=== PATIENT | male | born 1960 | race African-American/Black ===

== ENCOUNTER 2018-11-27 10:19 | Inpatient (IN) | payer OTHER ==
[2018-11-27 10:44] VITALS: BMI 22.4
--- NOTE | 2018-11-27 10:48 | PDOC ---
Attending Attestation - HPI HPI: The patient is a 58 year old male, with a significant past medical history of HTN, DM, ESRD on dialysis (Mon., Wed., Fri.), who presents to the emergency department with 3 days of nausea & vomiting (coffee ground emesis). Patient states that hes been having nausea and vomit for 3 days, approx. 12 episodes/ day, 2 episodes today. Patient states that he vomits every time he eats and notes associated weakness and epigastric pain. Patient states last BM was yesterday, normal formed, non-bloody. Today he reports passing gas. He states he has never seen GI but had a normal colonoscopy 2 years ago. He states that this has never happened to him before. He also notes subjective fever and chills. Patient states he was last dialyzed yesterday due to the holidays. He denies any recent chest pain or shortness of breath. He denies any recent headache or dizziness. He denies any recent diarrhea or constipation. He denies any recent dysuria, frequency, urgency or hematuria. Primary Care Physician: Nathan Boyd 11/27/18 11:28 - Physicial Exam PE: Vitals: Triage Vital signs reviewed General Appearance: mild discomfort, well nourished well developed Head: Atraumatic Chest Wall: Nontender Cardiac: Regular rate and rhythm, no murmurs, no rubs, no gallops Lungs: Clear to auscultation bilateral, good air movement bilaterally Abdomen: Soft, non distended, normal bowel sounds, mild epigastric discomfort. Extremities: Full range of motion to all extremities, no cyanosis, clubbing, or edema Skin: Warm and dry, no rashes or lesions, no rash, no petechiae Neuro: AOX3; Cranial Nerves 2-12 grossly intact, Strength intact to all extremities, Sensation intact to all extremities, gait normal Psych: Normal mood, normal affect <Brinda Ly - Last Filed: 11/27/18 13:17> - Resident Resident Name: Jeannette Glass - ED Attending Attestation I have performed the following: I have examined & evaluated the patient, The case was reviewed & discussed with the resident, I agree w/resident's findings & plan, Exceptions are as noted - Medical Decision Making 11/27/18 15:53 The patient is a 58 year old male, with a significant past medical history of HTN, DM, ESRD on dialysis (Mon., Wed., Fri.), who presents to the emergency department with 3 days of nausea & vomiting (coffee ground emesis). Patient states that hes been having nausea and vomit for 3 days, approx. 12 episodes/ day, 2 episodes today. Profuse vomiting coffee ground Epigastric discomfort given white count of [address] with IV contrast. We'll admit for IV hydration with fluid status monitoring patient will require dialysis tomorrow Dr. Ford to follow up CT and dispo <Gary Hoyt - Last Filed: 11/27/18 15:54> Heart Score/ECG Review - ECG Impressions Comment:: 11/27/18 15:54 EKG performed at 1059 demonstrates normal sinus rhythm no ST elevations no T- wave inversions. Interpreted by me. <Gary Hoyt - Last Filed: 11/27/18 15:54>
[2018-11-27] MEDS ORDERED: ONDANSETRON 4 MG/2 ML VIAL IVPUSH ONE (10:55)
[2018-11-27] MEDS ORDERED: ONDANSETRON 4 MG/2 ML VIAL ONE (11:13)
[2018-11-27 11:17] LABS: BASO % 0.5 % (0-2.0); HEMATOCRIT 35.6 % (35.4-49); HEMOGLOBIN 11.2 GM/dL (11.7-16.9); LYMPH % 4.6 % (8-40); MCHC 31.5 g/dl (32.0-35.9); MONO % 6.8 % (3.8-10.2); NEUT % 88.1 % (42.8-82.8); PLATELET COUNT 238 K/MM3 (134-434); RBC 3.87 M/mm3 (4.00-5.60); RDW 16.9 % (11.9-15.9)
[2018-11-27 11:40] LABS: INR 1.03 (0.83-1.09); PROTHROMBIN TIME (PATIENT) 12.2 SEC (9.7-13.0)
[2018-11-27 11:42] LABS: ACTIVATED PTT 29.7 SECONDS (25.2-36.5)
[2018-11-27 12:00] LABS: ALBUMIN 3.6 g/dl (3.4-5.0); ALK PHOS 108 U/L (45-117); ANION GAP 11 MMOL/L (8-16); BILIRUBIN,TOTAL 0.5 mg/dL (0.2-1); BLOOD UREA NITROGEN 44 mg/dL (7-18); CALCIUM 8.3 mg/dL (8.5-10.1); CHLORIDE 90 mmol/L (98-107); CO2 27 mmol/L (21-32); GLUCOSE,RANDOM 205 mg/dL (74-106); LIPASE 473 U/L (73-393); POTASSIUM 5.3 mmol/L (3.5-5.1); SGOT/AST 18 U/L (15-37); SGPT/ALT 20 U/L (13-61); SODIUM 128 mmol/L (136-145); TOT PROT 7.8 g/dl (6.4-8.2)
[2018-11-27] MEDS ORDERED: ACETAMINOPHEN 1000 MG/100 ML VIAL (NON FORMULARY) IVPB ONE (12:43)
[2018-11-27] MEDS ORDERED: SODIUM CHLORIDE 1,000 ML IV SCH ×2 (12:45→23:45)
--- NOTE | 2018-11-27 12:46 | PDOC ---
History of Present Illness - General Chief Complaint: Coffee Ground Emesis Stated Complaint: NAUSEA/VOMITING Time Seen by Provider: 11/27/18 10:38 - History of Present Illness Initial Comments: 58yo M with PMH of HTN, DM, ESRD on dialysis MWF presenting with vomiting x 3 days. Patient reports vomiting that has been black. He last had dialysis yesterday and was supposed to have dialysis today but did not go because he came into the ED. Last bowel movement was yesterday and was a normal formed brown stool without blood. Last colonoscopy was two years ago and was normal. Denies history of abdominal surgeries. Endorses epigastric pain which he attributes to his vomiting. He has had about 12 episodes of vomiting per day, with two today prior to coming to the ED. This has never happened before. No chest pain or shortness of breath. Yesterday, he started having fevers and chills. Past History - Past Medical History Allergies/Adverse Reactions: Allergies Allergy/AdvReac Type Severity Reaction Status Date / Time No Known Allergies Allergy Verified 11/27/18 10:23 Home Medications: Ambulatory Orders Losartan Potassium [Cozaar -] 100 mg PO DAILY #0 tablet 03/01/16 Metoprolol Succinate [Toprol XL -] 100 mg PO DAILY@1900 #0 tab.sr.24h 03/01/16 Hydralazine HCl 50 mg PO BID 11/27/18 Nifedipine [Procardia Xl] 60 mg PO BID 11/27/18 COPD: No Diabetes: Yes Dialysis: Yes (m,w,f) HTN: Yes - Immunization History Immunization Up to Date: Yes - Suicide/Smoking/Psychosocial Hx Smoking History: Never smoked Hx Alcohol Use: No Drug/Substance Use Hx: No Substance Use Type: None Review of Systems - Review of Systems Comments:: Constitutional: +fever, +chills HEENT: no throat pain, no dysphagia Cardiovascular: no chest pain, no palpitations Respiratory: no cough, no shortness of breath Gastrointestinal: +abdominal pain, +nausea, +vomiting Genitourinary: no dysuria, no frequency Musculoskeletal: no myalgia, no arthralgia Skin: no rash, no itching Neurologic: no headache, +lightheaded *Physical Exam - Vital Signs Last Vital Signs Temp Pulse Resp BP Pulse Ox 98 F 74 18 146/63 98 11/27/18 10:27 11/27/18 10:27 11/27/18 10:27 11/27/18 10:27 11/27/18 10:27 - Physical Exam Comments: General: Awake, alert, and fully oriented, in no acute distress Head: No signs of trauma Eyes: EOMI, sclera anicteric ENT: Moist mucus membranes Neck: Normal ROM, supple Lungs: Lungs clear, Normal breath sounds Cardio: Regular rhythm, S1 and S2 present Abdomen: Soft, nontender. No guarding, no rebound, no masses Extremities: Normal range of motion, Distal pulses present SKIN: Warm, Dry, normal turgor Neurologic: Cranial nerves II through XII grossly intact. Normal speech Rectal: The skin is without erythema or induration. No external hemorrhoids, fissures, skin tags, warts, or discharge. Sphincter tone normal. There are no masses palpated on digital exam. Substantial light brown stool without blood is in the vault. The prostate is firm, non-tender, without nodules. Moderate Sedation - Procedure Monitoring Vital Signs: Procedure Monitoring Vital Signs Temperature 98 F 11/27/18 10:27 Pulse Rate 74 11/27/18 10:27 Respiratory Rate 18 11/27/18 10:27 Blood Pressure 146/63 11/27/18 10:27 O2 Sat by Pulse Oximetry (%) 98 11/27/18 10:27 ED Treatment Course - LABORATORY CBC & Chemistry Diagram: 11/27/18 11:00 11/27/18 11:00 - ADDITIONAL ORDERS Additional order review: Laboratory Results 11/27/18 11/27/18 11/27/18 11:20 11:00 11:00 PT with INR INR PTT (Actin FS) Sodium 128 L Potassium 5.3 H Chloride 90 L Carbon Dioxide 27 Anion Gap 11 BUN 44 H Creatinine 9.0 H* Creat Clearance w eGFR 6.12 Random Glucose 205 H Calcium 8.3 L Total Bilirubin 0.5 AST 18 ALT 20 Alkaline Phosphatase 108 Troponin I 0.06 H Total Protein 7.8 Albumin 3.6 Lipase 473 H Stool Occult Blood Negative Blood Type A POSITIVE Antibody Screen Negative 11/27/18 11:00 PT with INR 12.20 INR 1.03 PTT (Actin FS) 29.7 Sodium Potassium Chloride Carbon Dioxide Anion Gap BUN Creatinine Creat Clearance w eGFR Random Glucose Calcium Total Bilirubin AST ALT Alkaline Phosphatase Troponin I Total Protein Albumin Lipase Stool Occult Blood Blood Type Antibody Screen 11/27/18 11:00 RBC 3.87 L MCV 92.0 MCHC 31.5 L RDW 16.9 H MPV 8.0 D Neutrophils % 88.1 H D Lymphocytes % 4.6 L D Monocytes % 6.8 Eosinophils % 0.0 D Basophils % 0.5 - RADIOLOGY Radiology Studies Ordered: Category Date Time Status ABDOMEN FLAT & UPRIGHT [RAD] Stat Radiology 11/27/18 11:13 Completed - Medications Given in the ED: ED Medications Discontinued Medications Generic Name Dose Route Start Last Admin Trade Name Freq PRN Reason Stop Dose Admin Ondansetron HCl 4 mg 11/27/18 10:55 11/27/18 11:20 Zofran Injection IVPUSH 11/27/18 10:56 4 mg ONCE ONE Administration Medical Decision Making - Medical Decision Making 58yo M with PMH of HTN, DM, ESRD on dialysis MWF presenting with vomiting x 3 days. -DDX includes but not limited to GI bleed, upper vs lower; ACS, pancreatitis, hepatitis, cholecystitis -Labs -Abdominal radiograph, flat and upright -Tpn elevated at 0.06, indeterminate, repeat value -4mg Zofran 11/27/18 12:45 WBC=15.0, unknown source CXR and UA ordered Repeat Tpn 0.05 Hgb=11.2 which is at patients baseline Coags WNL Ta=225, K=5.3, BUN=44, Cr=9.0; Needs to be dialyzed FOBT negative Influenza A and B negative NS: 50cc/hr, 1g Ofirmev, 40 Protonix Patient endorsing improving symptoms, but still endorsing epigastric tenderness Decision made to order CT abd/pelvis w/contrast Abdominal Xray: Constipation CT Report: Concentric wall edema is seen involving the partially visualized thoracic esophagus adjacent to the gastroesophageal junction. The superior extent of this finding is not included on this study. There also appears to be a small amout of edema and/or fluid within the contiguous periesophageal soft tissues medially and laterally- ? esophageal injury and/or severe esophagitis. A small amount of nonspecific right-sided pleural fluid is seen layering posteriorly. There is mild to moderate gastric distention due to fluid accumulation. Small bilateral nonobstructing renal calculi CXR: no acute pathology (my impression) Patient has not had any episodes of emesis while in the ED, is FOBT negative, and Hgb is at baseline, however, given elevated WBC, elevated lipase, and esophagitis on CT findings, patient should stay for repeat Hgb and further evaluation. Patient also needs to be dialyzed. Plan to admit 11/27/18 18:32 Discussed case with inpatient team who accepted patient for admission under Dr. Muniz 11/27/18 20:03 *DC/Admit/Observation/Transfer Diagnosis at time of Disposition: Esophagitis, Elevated lipase - Discharge Dispostion Condition at time of disposition: Guarded Decision to Admit order: Yes - Referrals - Patient Instructions - Post Discharge Activity
[2018-11-27] MEDS ORDERED: PANTOPRAZOLE SODIUM 40 MG VIAL IVPUSH ONE (13:49)
[2018-11-27] MEDS ORDERED: PANTOPRAZOLE SODIUM 40 MG/100 ML BAG IVPB ONE ×2 (13:51→13:52)
[2018-11-27] MEDS ORDERED: ACETAMINOPHEN INJECTION 100 ML IVPB ONE (13:51)
[2018-11-27 17:21] LABS: URINE APPEARANCE CLEAR; URINE BILIRUBIN NEGATIVE (<2.0 mg/dL); URINE COLOR LTYELLOW; URINE GLUCOSE (UA) 3+ (NEGATIVE); URINE KETONE NEGATIVE (NEGATIVE); URINE LEUK ESTERASE NEGATIVE (NEGATIVE); URINE NITRITE NEGATIVE (NEGATIVE); URINE PROTEIN 3+ (NEGATIVE); URINE UROBILINOGEN NEGATIVE mg/dL (0.2-1.0)
--- NOTE | 2018-11-27 19:11 | EKG ---
Test Reason : Blood Pressure : / mmHG Vent. Rate : 073 BPM Atrial Rate : 073 BPM P-R Int : 144 ms QRS Dur : 094 ms QT Int : 398 ms P-R-T Axes : 066 -52 051 degrees QTc Int : 438 ms NORMAL SINUS RHYTHM POSSIBLE LEFT ATRIAL ENLARGEMENT LEFT ANTERIOR FASCICULAR BLOCK LEFT VENTRICULAR HYPERTROPHY NONSPECIFIC ST ABNORMALITY ABNORMAL ECG WHEN COMPARED WITH ECG OF 26-FEB-2016 22:22, NO SIGNIFICANT CHANGE WAS FOUND Confirmed by VENECIA RODRIGUEZ MD ([id number]) on 11/27/2018 7:11:20 PM Referred By: Confirmed By:VENECIA RODRIGUEZ MD
[2018-11-27] MEDS ORDERED: PANTOPRAZOLE SODIUM 80 MG/200 ML BAG IVPB ONE (23:11)
[2018-11-27] MEDS ORDERED: INSULIN REGULAR HUMAN 100 UNITS/ML *VIAL ONE (23:12)
[2018-11-27] MEDS ORDERED: DEXTROSE 50%-WATER - 25 GM/50 ML VIAL IVPUSH ONE (23:15)
[2018-11-27] MEDS ORDERED: INSULIN REGULAR HUMAN 100 UNITS/ML *VIAL IVPUSH ONE (23:15)
[2018-11-27] MEDS: PANTOPRAZOLE SODIUM 80 MG in SODIUM CHLORIDE 100 ML IVPB SCH (23:25)
[2018-11-27] MEDS ORDERED: DEXTROSE 50%-WATER 25 GM/50 ML DISP.SYRIN ONE (23:42)
--- NOTE | 2018-11-27 23:48 | PN ---
Teaching Attending Note Name of Resident: Thee Gastelum ATTENDING PHYSICIAN STATEMENT I saw and evaluated the patient. I reviewed the resident's note and discussed the case with the resident. I agree with the resident's findings and plan as documented. SUBJECTIVE: Seen and examined with resident; please see their note for further historical information. In summation, this is a patient with a history of DM, HTN, ESRD ( MWF, Dr. Morejon, LUE AVF, unknown dry weight) who presents with history of epigastric pain and coffee ground emesis for 3 days. He has been having waxing and waning nausea and vomiting and the aforementioned dark vomit with no bright red vomit, melena, or hematochezia noted. He hasn't had this issue before. Nothing makes it better or worse, isn't on any home tx with PPI, etc. He had a colonoscopy 2 years ago, never had an EGD, forgets who he saw for the c-scope. He denies any history of alcohol or NSAID abuse. He is not on anticoag. Normal eosinophils, no h/o HIV. Because of how he felt, he missed HD on friday and friday this week but did have an additional session on . In the ER he was diagnosed with esophagitis and medicine was called for admission. 10 sys ROS done and negative aside from HPI PMH and PSH reviewed FH asked and noncontributory Socially he denies EtOH or drug abuse. Medication list reviewed; to be reconciled with resident OBJECTIVE: VS, labs, imaging reviewed NAD, AAO, resting in bed RRR s1/2 no mgr LUE with +thrill, full ROM all 4 limbs Lungs CTAB w/ sym exp Tender in upper abdomen, nondistended, +BS CN2-12 wnl, no fnd Normal mood, appropriate behavior Labs show WBC 15 with Hb 11 (last Hb 10) and CLEAT LAYER predominance on differential; Na 128, K 5.3, Cl 90; BUN/Cr 44/9, coags wnl. Lipase 473 with troponin 0.06 initially which fell to 0.05. Blood and urine cultures pending. CT shows concentric esophageal wall edema in the thoracic esophagus by the GE unction. Small amount of edema in the periesophageal soft tissues. Question esophageal injury or severe esophagitis. Gastric distention seen due to severe esophagitis. ASSESSMENT AND PLAN: Mr. Palma presents with coffee ground emesis likely 2/2 severe esophatitis; pending call back from GI. He also missed his dialysis. 1) Coffee ground emesis with esophagitis -Normal HR, Hb actually above baseline. FOBT negative; send gastric contents for occult blood if further vomiting occurs. -Protonix drip, GI consultation, strict NPO. Trend Hb q6h. No indication of cirrhosis so can hold off on octreotide. Rectal exam negative for blood. -Unclear what is causing the esophagitits; he denies NSAID abuse, doesn't have any anatomical variations knon (Aberrant SCA, enlarged LA, mediastinal mass); no increased EP%, no bisphosphonate, abx use. Leukocytosis may be reactive but will epirically cover with ceftriaxone if any infectious esophagitis. No history to suggest achlasia, no radiation tx, etc. -Awaiting call back from GI; defer further management to them. May consider gastrografin swallow if concern of injury 2) ESRD on HD -Nephrology consulted; will defer further management to their service. -Strict Is and Os, QD BMP -Will likely need HD today (last session , missed friday and friday [ is MWF HD]; no issues with fistula 3) Uncontrolled HTN -Strict NPO; use IV hydralazine. Be mindful of risk of hypotension due to #1 so would err on letting him run on the high side of normal 4) DM -SSI with q6h fsg 5) Hyperkalemia -5.3 with no EKG changes but missed HD; giving D50/insulin IV then repeating. -Followup BMP 6) Hyponatremia -Likely dilutional due to missed HD; ultimately defer management to nephrology but will monitor BMP and expect the value to improve with HD 7) Elevated Lipase -Not at pancreatitis levels with anatomically normal pancreas. Lipase can be elevated with esophagitis which I suspect is the etiology here. 8) Elevated Troponin -Already trended down; likely renal retention with mild demand. No need for further workup; completely asx 9) Chronic Anemia -At baseline; as per #1; followup with OP nephrology and PCP FENA -NS@30 -PRN replete; treat hyperK, monitor Mg, Phos -Strict NPO -As tolerated Full Code
[2018-11-28] MEDS ORDERED: hydrALAZINE HCL 20 MG/ML VIAL IVPUSH ONE ×4 (00:44→21:31)
[2018-11-28] MEDS ORDERED: hydrALAZINE HCL 20 MG/ML VIAL ONE (01:03)
[2018-11-28 01:06] LABS: ALK PHOS 92 U/L (45-117); ANION GAP 11 MMOL/L (8-16); BILIRUBIN,TOTAL 0.4 mg/dL (0.2-1); BLOOD UREA NITROGEN 54 mg/dL (7-18); CALCIUM 7.7 mg/dL (8.5-10.1); CHLORIDE 91 mmol/L (98-107); CO2 26 mmol/L (21-32); GLUCOSE,RANDOM 260 mg/dL (74-106); POTASSIUM 5.4 mmol/L (3.5-5.1); SGOT/AST 16 U/L (15-37); SGPT/ALT 16 U/L (13-61); SODIUM 128 mmol/L (136-145); TOT PROT 6.7 g/dl (6.4-8.2)
[2018-11-28 01:08] LABS: CREATININE 10.1 mg/dL (0.55-1.3)
--- NOTE | 2018-11-28 02:05 | HP ---
CHIEF COMPLAINT: Coffee ground emesis PCP: HISTORY OF PRESENT ILLNESS: Patient is a 58 year old male with history of hypertension, diabetes mellitus, ESRD on HD Fri/Fri/ Fri, presents with complaint of coffee ground emesis. States that symptoms first occurred three days ago without clear inciting factor. Describes the vomit as "dark black" in color, without hematochezia. He notes that he continues to vomit after eating any meal, and has been hesitant to eat as a result. Has been drinking soup. He endorses abdominal pain described as dull, pressure-like localized to the epigastrum, non radiating. Currently rated 3/10 intensity. He states the abdominal pain is relieved with vomiting. He denies prior occurrence of these symptoms. He denies taking NSAIDs. Due to his symptoms, he missed his HD appointment on Friday. He was last dialyzed 11/26. His last colonoscopy was 2 years ago, and states he was told result was "normal". He denies prior EGD. Admits his last bowel movement was yesterday, solid, formed without melena or hematochezia. ER course was notable for: (1) Negative stool for occult blood (2) CT scan shows concentric wall edema of thoracic esophagus with periesophageal edema in addition to right pleural fluid. 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 Patient did not know his mother. Allergies No Known Allergies Allergy (Verified 11/27/18 10:23) HOME MEDICATIONS: Home Medications Medication Instructions Recorded Metoprolol Succinate [Toprol XL -] 100 mg PO DAILY@1900 #0 tab.sr.24h 03/01/16 Hydralazine HCl 50 mg PO BID 11/27/18 Nifedipine [Procardia Xl] 60 mg PO BID 11/27/18 REVIEW OF SYSTEMS CONSTITUTIONAL: Admits: fevers, chills. Absent: diaphoresis, generalized weakness, malaise, HEENT: Absent: rhinorrhea, nasal congestion, throat pain, difficulty swallowing, mouth swelling, visual changes CARDIOVASCULAR: Absent: chest pain, syncope, palpitations, irregular heart rate, lightheadedness , peripheral edema RESPIRATORY: Absent: cough, shortness of breath, dyspnea with exertion, orthopnea, wheezing, stridor, hemoptysis GASTROINTESTINAL: Admits: nausea, vomiting. Absent: abdominal pain, abdominal distension, diarrhea , constipation, melena, hematochezia GENITOURINARY: Absent: dysuria, frequency, urgency, hesitancy, hematuria, flank pain, genital pain MUSCULOSKELETAL: Absent: myalgia, arthralgia, joint swelling, back pain, neck pain SKIN: Absent: rash, itching, pallor HEMATOLOGIC/IMMUNOLOGIC: Absent: easy bleeding, easy bruising, lymphadenopathy, frequent infections NEUROLOGIC: Absent: headache, focal weakness or paresthesias, dizziness, unsteady gait, seizure, mental status changes, bladder or bowel incontinence PSYCHIATRIC: Absent: anxiety, depression, suicidal or homicidal ideation, hallucinations. PHYSICAL EXAMINATION Vital Signs - 24 hr 11/27/18 11/27/18 11/27/18 10:27 17:24 21:35 Temperature 98 F 99.1 F Pulse Rate 74 Pulse Rate [ 70 76 Right Radial] Respiratory 18 18 16 Rate Blood Pressure 146/63 Blood Pressure 143/80 182/87 H [Right Arm] O2 Sat by Pulse 98 96 95 Oximetry (%) 11/28/18 11/28/18 00:10 02:00 Temperature Pulse Rate Pulse Rate [ 80 80 Right Radial] Respiratory 16 16 Rate Blood Pressure Blood Pressure 187/87 H 171/87 H [Right Arm] O2 Sat by Pulse 95 97 Oximetry (%) GENERAL: Awake, alert, and fully oriented, in no acute distress. HEAD: Normal with no signs of trauma. EYES: Pupils equal, round and reactive to light, extraocular movements intact, sclera anicteric, conjunctiva clear. No lid lag. EARS, NOSE, THROAT: Ears normal, nares patent, oropharynx clear without exudates. Dry mucous membranes. NECK: Normal range of motion, supple without lymphadenopathy, JVD, or masses. LUNGS: Breath sounds equal, clear to auscultation bilaterally. No wheezes, and no crackles. No accessory muscle use. HEART: Regular rate and rhythm, normal S1 and S2 without murmur, rub or gallop. ABDOMEN: Soft, tender to deep palpation within epigastrum, not distended. Normoactive bowel sounds X4 quadrants. No guarding, no rebound tenderness, No hepatomegaly or splenomegaly palpated or percussed. RECTAL: Good anal sphincter tone. No external or internal hemorroids palpated. No stool noted within rectal vault. No eleanor blood upon gloved finger. MUSCULOSKELETAL: Normal range of motion at all joints. No bony deformities or tenderness. Strength 5/5 b/l upper and lower extremities. UPPER EXTREMITIES: 2+ radial pulses b/l. Warm, well-perfused. No cyanosis. No clubbing. No peripheral edema. Left upper extremity AV fistula with palpable thrill. LOWER EXTREMITIES: 2+ dorsalis pedis pulses b/l. Warm, well-perfused. No calf tenderness. No peripheral edema b/l lower extremities.. NEUROLOGICAL: Cranial nerves II-XII intact. Normal speech. PSYCHIATRIC: Cooperative. Good eye contact. Appropriate mood and affect. SKIN: Warm, dry. Laboratory Results - last 24 hr 11/27/18 11/27/18 11/27/18 11:00 11:00 11:00 WBC 15.0 H RBC 3.87 L Hgb 11.2 L Hct 35.6 MCV 92.0 MCH 29.0 MCHC 31.5 L RDW 16.9 H Plt Count 238 MPV 8.0 D Absolute Neuts (auto) 13.2 H Neutrophils % 88.1 H D Lymphocytes % 4.6 L D Monocytes % 6.8 Eosinophils % 0.0 D Basophils % 0.5 Nucleated RBC % 0 PT with INR 12.20 INR 1.03 PTT (Actin FS) 29.7 Sodium 128 L Potassium 5.3 H Chloride 90 L Carbon Dioxide 27 Anion Gap 11 BUN 44 H Creatinine 9.0 H* Creat Clearance w eGFR 6.12 POC Glucometer Random Glucose 205 H Calcium 8.3 L Total Bilirubin 0.5 AST 18 ALT 20 Alkaline Phosphatase 108 Troponin I 0.06 H Total Protein 7.8 Albumin 3.6 Lipase 473 H Urine Color Urine Appearance Urine pH Ur Specific [place] Urine Protein Urine Glucose (UA) Urine Ketones Urine Blood Urine Nitrite Urine Bilirubin Urine Urobilinogen Ur Leukocyte Esterase Urine WBC (Auto) Urine RBC (Auto) Stool Occult Blood Influenza A (Rapid) Influenza B (Rapid) Blood Type Antibody Screen 11/27/18 11/27/18 11/27/18 11:00 11:20 13:46 WBC RBC Hgb Hct MCV MCH MCHC RDW Plt Count MPV Absolute Neuts (auto) Neutrophils % Lymphocytes % Monocytes % Eosinophils % Basophils % Nucleated RBC % PT with INR INR PTT (Actin FS) Sodium Potassium Chloride Carbon Dioxide Anion Gap BUN Creatinine Creat Clearance w eGFR POC Glucometer Random Glucose Calcium Total Bilirubin AST ALT Alkaline Phosphatase Troponin I Total Protein Albumin Lipase Urine Color Urine Appearance Urine pH Ur Specific [place] Urine Protein Urine Glucose (UA) Urine Ketones Urine Blood Urine Nitrite Urine Bilirubin Urine Urobilinogen Ur Leukocyte Esterase Urine WBC (Auto) Urine RBC (Auto) Stool Occult Blood Negative Influenza A (Rapid) Negative Influenza B (Rapid) Negative Blood Type A POSITIVE Antibody Screen Negative 11/27/18 11/27/18 11/27/18 17:15 17:15 23:21 WBC RBC Hgb Hct MCV MCH MCHC RDW Plt Count MPV Absolute Neuts (auto) Neutrophils % Lymphocytes % Monocytes % Eosinophils % Basophils % Nucleated RBC % PT with INR INR PTT (Actin FS) Sodium Potassium Chloride Carbon Dioxide Anion Gap BUN Creatinine Creat Clearance w eGFR POC Glucometer 179.76236 Random Glucose Calcium Total Bilirubin AST ALT Alkaline Phosphatase Troponin I 0.05 Total Protein Albumin Lipase Urine Color Ltyellow Urine Appearance Clear Urine pH 8.0 D Ur Specific [place] 1.012 Urine Protein 3+ H Urine Glucose (UA) 3+ H Urine Ketones Negative Urine Blood Negative Urine Nitrite Negative Urine Bilirubin Negative Urine Urobilinogen Negative Ur Leukocyte Esterase Negative Urine WBC (Auto) 4 Urine RBC (Auto) 3 Stool Occult Blood Influenza A (Rapid) Influenza B (Rapid) Blood Type Antibody Screen 11/28/18 00:14 WBC RBC Hgb Hct MCV MCH MCHC RDW Plt Count MPV Absolute Neuts (auto) Neutrophils % Lymphocytes % Monocytes % Eosinophils % Basophils % Nucleated RBC % PT with INR INR PTT (Actin FS) Sodium 128 L Potassium 5.4 H Chloride 91 L Carbon Dioxide 26 Anion Gap 11 BUN 54 H Creatinine 10.1 H* Creat Clearance w eGFR 5.36 POC Glucometer Random Glucose 260 H Calcium 7.7 L Total Bilirubin 0.4 AST 16 ALT 16 Alkaline Phosphatase 92 Troponin I Total Protein 6.7 Albumin 3.0 L Lipase Urine Color Urine Appearance Urine pH Ur Specific [place] Urine Protein Urine Glucose (UA) Urine Ketones Urine Blood Urine Nitrite Urine Bilirubin Urine Urobilinogen Ur Leukocyte Esterase Urine WBC (Auto) Urine RBC (Auto) Stool Occult Blood Influenza A (Rapid) Influenza B (Rapid) Blood Type Antibody Screen ASSESSMENT/PLAN: Patient is a 58 year old male with history of hypertension, diabetes mellitus, ESRD on HD Fri/Fri/ Fri, presents with complaint of coffee ground emesis. Coffee ground emesis -Unclear etiology. Patient is not taking NSAIDs, not taking anticoagulants. Does not consume alcohol. -CT scan shows concentric thoracic esophageal wall thickening suggestive of esophagitis. Eosinophils not elevated. -Protonix drip at 8mg/ hour -Strict NPO pending GI evaluation. -F/U GI consult (Dr. Vidales) ESRD -Patient is on HD Fri/ Fri/ Fri -F/U nephrology consult (Dr. Ramey) to continue patients hemodialysis Hypertension -Holding home PO medications for now -Manage BP with IV hydralazine 5mg IV Hyponatremia -Likely secondary to dilution due to missing his hemodialysis. -Follow CMP closely Hyperkalemia -Insulin 10mg IV x1 -D50 25 grams IV x1 -Kayexalate 30mg PO x1 -Follow CMP closely Diabetes mellitus -Insulin sliding scale ACHS -BGM ACHS FEN -IV normal saline at 30mL/ hour -Hyponatremia, hyperkalemia. Follow CMP closely -Strict NPO, pending GI evaluation Prophylaxis -SCDs b/l lower extremities Disposition -Admit to telemetry floor for monitoring. Visit type - Emergency Visit Emergency Visit: Yes ED Registration Date: 11/27/18 Care time: The patient presented to the Emergency Department on the above date and was hospitalized for further evaluation of their emergent condition. - New Patient This patient is new to me today: Yes Date on this admission: 11/28/18 - Critical Care Critical Care patient: Yes Total Critical Care Time (in minutes): 35 Critical Care Statement: The care of this patient involved high complexity decision making to prevent further life threatening deterioration of the patient 's condition and/or to evaluate & treat vital organ system(s) failure or risk of failure.
[2018-11-28 03:44] LABS: HEMATOCRIT 31.3 % (35.4-49); HEMOGLOBIN 10.6 GM/dL (11.7-16.9); MCH 30.6 pg (25.7-33.7); MCHC 33.8 g/dl (32.0-35.9); MEAN CELL VOLUME 90.6 fl (80-96); PLATELET COUNT 233 K/MM3 (134-434); RBC 3.45 M/mm3 (4.00-5.60); RDW 16.9 % (11.9-15.9); WHITE BLOOD COUNT 14.3 K/mm3 (4.0-10.0)
[2018-11-28 04:07] LABS: ALBUMIN 3.1 g/dl (3.4-5.0); ALK PHOS 93 U/L (45-117); ANION GAP 11 MMOL/L (8-16); BILIRUBIN,TOTAL 0.5 mg/dL (0.2-1); BLOOD UREA NITROGEN 54 mg/dL (7-18); CALCIUM 7.7 mg/dL (8.5-10.1); CHLORIDE 94 mmol/L (98-107); CO2 25 mmol/L (21-32); GLUCOSE,RANDOM 116 mg/dL (74-106); MAGNESIUM 2.7 mg/dL (1.8-2.4); PHOSPHOROUS 6.4 mg/dL (2.5-4.9); POTASSIUM 5.7 mmol/L (3.5-5.1); SGOT/AST 17 U/L (15-37); SGPT/ALT 19 U/L (13-61); SODIUM 130 mmol/L (136-145); TOT PROT 6.8 g/dl (6.4-8.2)
[2018-11-28 04:08] LABS: CREATININE 10.4 mg/dL (0.55-1.3)
[2018-11-28] MEDS ORDERED: SODIUM POLYSTYRENE SULFONATE 15 GM/60 ML BOTTLE PO ONE (05:54)
[2018-11-28] MEDS ORDERED: CEFTRIAXONE 1 GM in DEXTROSE 5%-WATER - 50 ML IVPB SCH (06:00)
[2018-11-28] MEDS ORDERED: CEFTRIAXONE 1 GM/50 ML BAG ONE (07:05)
[2018-11-28] MEDS ORDERED: INSULIN (NOVOLOG) ASPART 100 UNITS/ML 10ML VIAL ONE (07:22)
[2018-11-28] MEDS: INSULIN SLIDING SCALE (NOVOLOG) 1 VIAL SQ SCH ×4 (07:24→21:09)
[2018-11-28] MEDS ORDERED: ALBUTEROL SO4 0.083% IH SOL 2.5 MG/3 ML VIAL.NEB. NEB SCH (07:30)
[2018-11-28] MEDS ORDERED: CALCIUM GLUCONATE 10% - 1,000 MG/10 ML VIAL IVPUSH ONE ×2 (08:55→15:47)
[2018-11-28] MEDS ORDERED: SODIUM CHLORIDE 250 ML IV PRN (10:24)
--- NOTE | 2018-11-28 10:58 | CON.GI ---
Consult Consult Specialty:: Gastroenterology ( covering [facility] GI service) Referred by:: Dr. Thee Gastelum Reason for Consultation:: Coffee ground emesis - History of Present Illness Chief Complaint: N/V x 4 days wth inability to eat History of Present Illness: 58M diabetic with ESRD has had nausea and vomiting for the past 3-4 days. He has chills but denies diarrhea or melena. He has not moved his bowels since the symptoms began. He describes one episode of coffee ground like material. he has a dull epigastric pain. He denies any past h/o GI problems and had a colonoscopy about 2 years ago which he reports was normal He cannot identify the GI who did it. No FH of cancer. He apparently missed his dialysis on Friday and yesterday due to this symptoms but had a limited dialysis on . His Hb is 10.6. His CT scan reveals significant distal esophageal wall edema and a collection that may reflect perforation. I spoke with Dr. Cutler of radiology and will pursue a stat chest CT with oral and IV contrast to exclude Boerhaave Syndrome. 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year[place] age 32 History of Recent Travel: No Home Medications - Allergies Allergies/Adverse Reactions: Allergies Allergy/AdvReac Type Severity Reaction Status Date / Time No Known Allergies Allergy Verified 11/27/18 10:23 - Home Medications Home Medications: Ambulatory Orders Metoprolol Succinate [Toprol XL -] 100 mg PO DAILY@1900 #0 tab.sr.24h 03/01/16 Hydralazine HCl 50 mg PO BID 11/27/18 Nifedipine [Procardia Xl] 60 mg PO BID 11/27/18 Family Disease History - Family Disease History Family Disease History: Other: Father ( 85 of hypertension), Mother ( 47 of yellow fever), Brother (HTN) Review of Systems - Review of Systems Constitutional: reports: Chills, Loss of Appetite, Weakness Eyes: reports: No Symptoms, Other (has cataracts) HENT: reports: No Symptoms Neck: reports: No Symptoms Cardiovascular: reports: No Symptoms Respiratory: reports: No Symptoms Gastrointestinal: reports: Abdominal Pain, Constipation, Nausea, Vomiting Genitourinary: reports: No Symptoms Musculoskeletal: reports: No Symptoms Physical Exam-GI Vital Signs: Vital Signs Temperature 98.7 F 11/28/18 06:35 Pulse Rate 90 11/28/18 06:35 Respiratory Rate 18 11/28/18 06:35 Blood Pressure 170/74 11/28/18 06:35 O2 Sat by Pulse Oximetry (%) 96 11/28/18 06:35 CBC,CMP WBC 14.3 K/mm3 (4.0-10.0) H 11/28/18 03:37 RBC 3.45 M/mm3 (4.00-5.60) L 11/28/18 03:37 Hgb 10.6 GM/dL (11.7-16.9) L 11/28/18 03:37 Hct 31.3 % (35.4-49) L 11/28/18 03:37 MCV 90.6 fl (80-96) 11/28/18 03:37 MCH 30.6 pg (25.7-33.7) 11/28/18 03:37 MCHC 33.8 g/dl (32.0-35.9) 11/28/18 03:37 RDW 16.9 % (11.9-15.9) H 11/28/18 03:37 Plt Count 233 K/MM3 (134-434) 11/28/18 03:37 MPV 8.0 fl (7.5-11.1) 11/28/18 03:37 Absolute Neuts (auto) 13.2 K/mm3 (1.5-8.0) H 11/27/18 11:00 Neutrophils % 88.1 % (42.8-82.8) H D 11/27/18 11:00 Lymphocytes % 4.6 % (8-40) L D 11/27/18 11:00 Monocytes % 6.8 % (3.8-10.2) 11/27/18 11:00 Eosinophils % 0.0 % (0-4.5) D 11/27/18 11:00 Basophils % 0.5 % (0-2.0) 11/27/18 11:00 Nucleated RBC % 0 % (0-0) 11/27/18 11:00 Sodium 130 mmol/L (136-145) L 11/28/18 03:37 Potassium 5.7 mmol/L (3.5-5.1) H 11/28/18 03:37 Chloride 94 mmol/L (98-107) L 11/28/18 03:37 Carbon Dioxide 25 mmol/L (21-32) 11/28/18 03:37 Anion Gap 11 MMOL/L (8-16) 11/28/18 03:37 BUN 54 mg/dL (7-18) H 11/28/18 03:37 Creatinine 10.4 mg/dL (0.55-1.3) H* 11/28/18 03:37 Creat Clearance w eGFR 5.18 (>60) 11/28/18 03:37 POC Glucometer 153.38781 UNITS (80-120) 11/28/18 07:15 Random Glucose 116 mg/dL (74-106) H 11/28/18 03:37 Calcium 7.7 mg/dL (8.5-10.1) L 11/28/18 03:37 Phosphorus 6.4 mg/dL (2.5-4.9) H 11/28/18 03:37 Magnesium 2.7 mg/dL (1.8-2.4) H 11/28/18 03:37 Total Bilirubin 0.5 mg/dL (0.2-1) 11/28/18 03:37 AST 17 U/L (15-37) 11/28/18 03:37 ALT 19 U/L (13-61) 11/28/18 03:37 Alkaline Phosphatase 93 U/L (45-117) 11/28/18 03:37 Troponin I 0.05 ng/ml (0.00-0.05) 11/27/18 17:15 Total Protein 6.8 g/dl (6.4-8.2) 11/28/18 03:37 Albumin 3.1 g/dl (3.4-5.0) L 11/28/18 03:37 Lipase 473 U/L (73-393) H 11/27/18 11:00 Current Medications Generic Name Dose Route Start Last Admin Trade Name Deonna PRN Reason Stop Dose Admin Chlorhexidine Gluconate 1 applic 11/28/18 22:00 Hibiclens For Decolonization - TP HS ELIZA Pantoprazole Sodium 80 mg/ 100 mls @ 10 mls/hr 11/27/18 23:15 11/27/18 23:25 Sodium Chloride IVPB 10 mls/hr Q10H ELIZA Administration 8 MG/HR Sodium Chloride 1,000 mls @ 30 mls/hr 11/27/18 23:45 11/28/18 01:00 Normal Saline - IV 11/28/18 23:44 30 mls/hr ASDIR ELIZA Administration Ceftriaxone Sodium 1 gm/ 50 mls @ 100 mls/hr 11/28/18 06:00 11/28/18 07:10 Dextrose IVPB 100 mls/hr DAILY ELIZA Administration Sodium Chloride 250 mls @ 3,000 mls/hr 11/28/18 10:24 Normal Saline - IV 11/29/18 10:25 PRN PRN Hypotension during Dialysis Insulin Aspart 1 vial 11/28/18 07:00 11/28/18 07:24 Novolog Vial Sliding Scale - SQ 2 unit ACHS ELIZA Administration Protocol Mupirocin 1 applic 11/28/18 10:00 Bactroban Ointment (For Decolonization) - NS 12/03/18 09:59 BID ELIZA Constitutional: Yes: No Distress Eyes: Yes: Conjunctiva Clear HENT: Yes: Normocephalic Neck: Yes: Supple Cardiovascular: Yes: Regular Rate and Rhythm Respiratory: Yes: CTA Bilaterally Gastrointestinal Inspection: Yes: WNL ...Auscultate: Yes: Hypoactive Bowel Sounds ...Palpate: Yes: Soft, Other (nontender) ...Percussion: Yes: Tympanitic ...Rectal Exam: Yes: Guaiac Negative (hard brown guaiac negative stool) Extremities: Yes: Other (LUE AV fistula) Edema: No Neurological: Yes: Alert, Oriented Labs: CBC, BMP 11/28/18 03:37 11/28/18 03:37 INR, PTT INR 1.03 (0.83-1.09) 11/27/18 11:00 Imaging - Results Cat Scan: Image Reviewed (thickened distal esophageal wall with surrounding fluid. no oral contrast was given.) Problem List - Problems (1) Hematemesis with nausea Code(s): K92.0 - HEMATEMESIS (2) Esophagus perforation Assessment/Plan: I am concerned that Kathy may have an esophageal perforation, Boerhaave Syndrome as a result of repeated vomiting and have ordered a stat chest CT. I have discussed the case with Dr. Cutler, Dr. Ramey, ICU hospitalist and the ER nurse. He may alternatively have severe reflux esophagitis. The vomiting may be a viral gastroenetritis and/or diabetic and uremic gastroparesis. Code(s): K22.3 - PERFORATION OF ESOPHAGUS (3) GERD with esophagitis Assessment/Plan: The vomiting may be a viral gastroenteritis and/or diabetic and uremic gastroparesis. Code(s): K21.0 - GASTRO-ESOPHAGEAL REFLUX DISEASE WITH ESOPHAGITIS (4) Diabetes 1.5, managed as type 2 Code(s): E13.9 - OTHER SPECIFIED DIABETES MELLITUS WITHOUT COMPLICATIONS (5) Hypertension Code(s): I10 - ESSENTIAL (PRIMARY) HYPERTENSION (6) Dialysis patient Code(s): Z99.2 - DEPENDENCE ON RENAL DIALYSIS (7) Anemia Code(s): D64.9 - ANEMIA, UNSPECIFIED (8) Renal failure Code(s): N19 - UNSPECIFIED KIDNEY FAILURE Assessment/Plan Need to exclude esophageal perforation vs severe reflux esophagitis Stat chest CT ordered Need thoracic surgery consultation Suspect diabetic/uremic gastroparesis vs viral gastroenteritis Will order blood cultures and start antibiotics
[2018-11-28] MEDS ORDERED: CALCIUM GLUCONATE 10% - 1,000 MG/10 ML VIAL ONE (11:04)
[2018-11-28] MEDS ORDERED: ALBUTEROL SO4 0.083% IH SOL 2.5 MG/3 ML VIAL.NEB. NEB ONE (11:05)
--- NOTE | 2018-11-28 11:27 | PN ---
Teaching Attending Note Name of Resident: Thee Gastelum ATTENDING PHYSICIAN STATEMENT I saw and evaluated the patient. I reviewed the resident's note and discussed the case with the resident. I agree with the resident's findings and plan as documented. Evaluated the patient today he is 58 yo m w HTN, DM, ESRD on HD P/W q week of intermittent dyspepsia with no clear trigger. aggravated by eating food and relieved with vomiting, denies any blood in the vomitus and states that it was dark( does not remember what he had had prior to the episodes) states that he cramping, pain and vomited to feel better. He denies any diarrhea, denies similar episodes before. states that had had stopped eating much because of it. Denies any weight loss.He missed his HS and had 1 half HD yesterday and in the ED was found to have hyperkalemia and hyponatermia with no significant uremia. He was admitted with concenr for GIB and as he was hyperkalemic was admitted to ICU. also started on IV PPI.At this time he is in no distress, VS are stable and the pain has improved. He has been evaluated by GI and there is no concern for GIB and it is mostly Due to dyspepsia and gastroparesia and no need for EGD emergency He also has been evaluated by nephrology and plan for HD today. Last Vital Signs Temp Pulse Resp BP Pulse Ox 98.7 F 90 18 170/74 96 11/28/18 06:35 11/28/18 06:35 11/28/18 06:35 11/28/18 06:35 11/28/18 06:35 CBCD WBC 14.3 K/mm3 (4.0-10.0) H 11/28/18 03:37 RBC 3.45 M/mm3 (4.00-5.60) L 11/28/18 03:37 Hgb 10.6 GM/dL (11.7-16.9) L 11/28/18 03:37 Hct 31.3 % (35.4-49) L 11/28/18 03:37 MCV 90.6 fl (80-96) 11/28/18 03:37 MCHC 33.8 g/dl (32.0-35.9) 11/28/18 03:37 RDW 16.9 % (11.9-15.9) H 11/28/18 03:37 Plt Count 233 K/MM3 (134-434) 11/28/18 03:37 MPV 8.0 fl (7.5-11.1) 11/28/18 03:37 CMP Sodium 130 mmol/L (136-145) L 11/28/18 03:37 Potassium 5.7 mmol/L (3.5-5.1) H 11/28/18 03:37 Chloride 94 mmol/L (98-107) L 11/28/18 03:37 Carbon Dioxide 25 mmol/L (21-32) 11/28/18 03:37 Anion Gap 11 MMOL/L (8-16) 11/28/18 03:37 BUN 54 mg/dL (7-18) H 11/28/18 03:37 Creatinine 10.4 mg/dL (0.55-1.3) H* 11/28/18 03:37 Creat Clearance w eGFR 5.18 (>60) 11/28/18 03:37 Random Glucose 116 mg/dL (74-106) H 11/28/18 03:37 Calcium 7.7 mg/dL (8.5-10.1) L 11/28/18 03:37 Total Bilirubin 0.5 mg/dL (0.2-1) 11/28/18 03:37 AST 17 U/L (15-37) 11/28/18 03:37 ALT 19 U/L (13-61) 11/28/18 03:37 Alkaline Phosphatase 93 U/L (45-117) 11/28/18 03:37 Total Protein 6.8 g/dl (6.4-8.2) 11/28/18 03:37 Albumin 3.1 g/dl (3.4-5.0) L 11/28/18 03:37 CARDIAC ENZYMES Troponin I 0.05 ng/ml (0.00-0.05) 11/27/18 17:15 PhEX: Last Vital Signs Temp Pulse Resp BP Pulse Ox 98.7 F 90 18 170/74 96 11/28/18 06:35 11/28/18 06:35 11/28/18 06:35 11/28/18 06:35 11/28/18 06:35 In no distress, moves in bed easily no volume overload A&oX3, No uremia findings CVS:s1S2+ AVF murmur lung: CTAB Abd: Bs+ m, NT/ND no peritoneal signs 2+ dp PULSES b/l A&P: 58 y/o M W dc, HTN, ESRDS on HD, P/W abdominal pain and nausea/ vomiting, stable VS and CBC. Dyspepsia: evaluated by GI: Plan for treatment for dyspepsia and not GIB at this time possible EGD as O/P Will get gastric emptying studies on friday Will start on clear liquid at this time WIll D iV PPI PPI bid HTN: will hold prior to the HD today but will restart home medications after that DM: on FS AC, QHS and insulin SC FC Dispo: home in 2 days DVT PPX:hEPARIN
--- NOTE | 2018-11-28 11:35 | CONSULT ---
Consult - text type - Consultation Consultation Note: [facility] Pt seen and examined in ED reason for consult: ? UGIB CC: ? coffee ground emesis HPI:Briefly pt is a 58 year old male with history of hypertension, diabetes mellitus, ESRD on HD Fri/Fri/ Fri, who presented to ED yesterday with with complaint of ?coffee ground? emesis. He relates vomiting began on friday of this week, he had no sick prodrome or other symptoms. Describes the vomit as "dark black" in color, there was no hematochezia, no melena, no BRBPR. He has had further vomiting with attempts to eat and that he skipped iHD appt on as a result. He received 1/2 dose of iHD on . He denies LOC, chest pain, shortness of breath, falls, trauma. He relates normal BM on Friday that was brown. In ED hbg was 10, pt normotensive, K was 5.7 without acute EKG changes. There was no instability, hgb stable without transfusion. A CTAP was performed without IV or PO contrast, showed "Impression: Concentric wall edema is seen involving the partially visualized thoracic esophagus adjacent to the gastroesophageal junction. The superior extent of this finding is not included on this study. There also appears to be a small amount of edema and/or fluid within the contiguous periesophageal soft tissues medially and laterally - ? esophageal injury and/or severe esophagitis. A small amount of nonspecific right -sided pleural fluid is seen layering posteriorly. There is mild to moderate gastric distention due to fluid accumulation. Small bilateral nonobstructing renal calculi." CCM consulted for ICU admission given possible GIB, esophagitis. Vital Signs Temp 98.7 F 11/28/18 06:35 Pulse 90 11/28/18 06:35 Resp 18 11/28/18 06:35 BP 170/74 11/28/18 06:35 Pulse Ox 96 11/28/18 06:35 Intake & Output 11/27/18 11/27/18 11/28/18 11:59 23:59 11:59 Weight 73.1 kg Other: Height 5 ft 11 in Body Mass Index (BMI) 22.4 CBC, BMP 11/28/18 03:37 11/28/18 03:37 Past Medical History Cardio/Vascular HTN Renal/ Renal Failure (ESRD on HD) Heme/Onc Anemia Endocrine Diabetes Mellitus (but no longer taking medications since he started dialysis ) Past Surgical History Past Surgical History AV Fistula/Graft (LUE) Smoking History Smoking history Never smoked Alcohol/Substance Use Hx Alcohol Use No History of Substance Use None Social History Usual Living Arrangement Alone () ADL Independent 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 History of Recent Travel No ROS 12 pt review negative except as per HPI PE: Gen: non toxic appearing man, appears stated age HEENT: NCAT, EOMI PULM: clear bilaterally CV: RRR, no m/r/g appreciated ABD: upper epigastric pain mildly increase with palpation, +BS, no rebound EXT: AVF with good thrill, no edema Neuro: no focal A/ 58 y/o man ESRD on HD with one episode of possible coffee ground emesis, found to have severe esophagitis on CT, stomach fluid filled but no obvious free air who is hemodynamically stable and without acute anemia (hgb higher than last admission) P/ -gi consult, Dr Vidales following, some concern for possible esophageal tear ( may need better imaging and recommend surg consult if imaging c/f tear) -NPO -protonix -Hemodialysis as per Renal, K can be medically managed in interim (no acute need ) -maintain adequate access -no indication for ICU admission. Hemodynamicallys stable, no obvious acute bleeding. Erendira ACNP [id number]
[2018-11-28] MEDS ORDERED: METOCLOPRAMIDE HCL INJECTION 10 MG/2 ML VIAL IVPUSH PRN (13:33)
[2018-11-28] MEDS ORDERED: SODIUM CHLORIDE 1,000 ML IV SCH (15:47)
[2018-11-28] MEDS ORDERED: FLU VACCINE QUAD 60 MCG/0.5 ML (MDV 18-19) IM ONE (16:08)
[2018-11-28] MEDS: NIFEdipine E.R 60 MG TABLET (UD) PO SCH (17:17)
--- NOTE | 2018-11-28 17:43 | CONSULT ---
Consult Consult Specialty:: Nephrology Reason for Consultation:: ESRD - History of Present Illness Chief Complaint: nausea and vomiting History of Present Illness: Pt is a 58 year old male with pmhx of HTN, DM, and ESRD who presents to the ER with abdominal pain. He also complains of an episode of coffee ground emesis. He denies chest pain. He was last dialyzed on as he missed his Friday session. He denies shortness of breath. He denies fevers or chills. He denies blood pre rectum. He has poor appetite. He is awake and alert. 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 History of Recent Travel: No Home Medications - Allergies Allergies/Adverse Reactions: Allergies Allergy/AdvReac Type Severity Reaction Status Date / Time No Known Allergies Allergy Verified 11/27/18 10:23 - Home Medications Home Medications: Ambulatory Orders Metoprolol Succinate [Toprol XL -] 100 mg PO DAILY@1900 #0 tab.sr.24h 03/01/16 Hydralazine HCl 50 mg PO BID 11/27/18 Nifedipine [Procardia Xl] 60 mg PO BID 11/27/18 Family Disease History - Family Disease History Family Disease History: Other: Father ( 85 of hypertension), Mother ( 47 of yellow fever), Brother (HTN) Review of Systems - Review of Systems Constitutional: reports: Malaise. denies: Chills, Fever Eyes: reports: No Symptoms HENT: reports: No Symptoms Neck: reports: No Symptoms Cardiovascular: reports: No Symptoms Respiratory: reports: No Symptoms Gastrointestinal: reports: Abdominal Pain, Vomiting Genitourinary: reports: No Symptoms Musculoskeletal: reports: No Symptoms Integumentary: reports: No Symptoms Neurological: reports: No Symptoms Endocrine: reports: No Symptoms Hematology/Lymphatic: reports: No Symptoms Psychiatric: reports: No Symptoms Physical Exam Vital Signs: Vital Signs Temperature 98.6 F 11/28/18 15:59 Pulse Rate 96 H 11/28/18 15:59 Respiratory Rate 14 11/28/18 15:59 Blood Pressure 232/94 H 11/28/18 15:59 O2 Sat by Pulse Oximetry (%) 97 11/28/18 15:18 Constitutional: Yes: Calm Eyes: Yes: Conjunctiva Clear HENT: Yes: Atraumatic Neck: Yes: Supple Cardiovascular: Yes: S1, S2 Respiratory: Yes: CTA Bilaterally Gastrointestinal: Yes: Soft. No: Tenderness Musculoskeletal: Yes: WNL Edema: No Neurological: Yes: Oriented Psychiatric: Yes: Oriented Labs: CBC, BMP 11/28/18 03:37 11/28/18 16:20 Laboratory Tests 11/27/18 11/28/18 11/28/18 11:00 00:14 03:37 Potassium 5.3 H 5.4 H 5.7 H Imaging - Results Cat Scan: Report Reviewed Problem List - Problems (1) ESRD (end stage renal disease) Code(s): N18.6 - END STAGE RENAL DISEASE (2) Dialysis patient Code(s): Z99.2 - DEPENDENCE ON RENAL DIALYSIS (3) Elevated lipase Code(s): R74.8 - ABNORMAL LEVELS OF OTHER SERUM ENZYMES (4) Hyperkalemia Code(s): E87.5 - HYPERKALEMIA Assessment/Plan Current Medications Generic Name Dose Route Start Last Admin Trade Name Freq PRN Reason Stop Dose Admin Chlorhexidine Gluconate 1 applic 11/28/18 22:00 Hibiclens For Decolonization - TP HS ELIZA Sodium Chloride 250 mls @ 3,000 mls/hr 11/28/18 10:24 Normal Saline - IV 11/29/18 10:25 PRN PRN Hypotension during Dialysis Levofloxacin 500 mg in 100 mls @ 100 mls/hr 11/29/18 08:00 Levaquin 500 Mg Premixed Ivpb - IVPB DAILY@0800 ELIZA Protocol Metronidazole 500 mg in 100 mls @ 100 mls/hr 11/28/18 18:00 Flagyl 500mg Premixed Ivpb - IVPB Q8H-IV ELIZA Sodium Chloride 1,000 mls @ 30 mls/hr 11/28/18 15:47 11/28/18 16:23 Normal Saline - IV 11/28/18 23:44 30 mls/hr ASDIR ELIZA Administration Insulin Aspart 1 vial 11/28/18 16:30 11/28/18 16:46 Novolog Vial Sliding Scale - SQ 2 units ACHS ELIZA Administration Protocol Metoclopramide HCl 10 mg 11/28/18 13:33 Reglan Injection - IVPUSH Q6H PRN NAUSEA AND/OR VOMITING Mupirocin 1 applic 11/28/18 22:00 Bactroban Ointment (For Decolonization) - NS 12/03/18 21:59 BID [facility] Nifedipine 60 mg 11/28/18 12:00 11/28/18 17:17 Procardia Xl - PO Not Given DAILY ELIZA Pantoprazole Sodium 40 mg 11/28/18 22:00 Protonix Iv IVPUSH BID ELIZA Impression 1. ESRD 2. abdominal pain 3. nausea and vomiting 4. HTN 5. anemia 6. hyperkalemia Plan - admit to ICU - will arrange for bedside HD - GI eval - follow up repeat ct scan - will get HD after contrast - monitor hg - will follow Dr Ramey
[2018-11-28] MEDS: hydrALAZINE HCL 20 MG/ML VIAL IVPUSH PRN (19:00)
[2018-11-28] MEDS: PANTOPRAZOLE SODIUM 80 MG in SODIUM CHLORIDE 100 ML IVPB SCH (19:17)
[2018-11-28 20:34] LABS: BASO % 0.2 % (0-2.0); EOS % 0.1 % (0-4.5); HEMATOCRIT 31.6 % (35.4-49); HEMOGLOBIN 10.1 GM/dL (11.7-16.9); LYMPH % 6.6 % (8-40); MCH 29.3 pg (25.7-33.7); MCHC 32.1 g/dl (32.0-35.9); MEAN CELL VOLUME 91.1 fl (80-96); MEAN PLT VOLUME 7.9 fl (7.5-11.1); MONO % 10.5 % (3.8-10.2); NEUT % 82.6 % (42.8-82.8); PLATELET COUNT 207 K/MM3 (134-434); RBC 3.46 M/mm3 (4.00-5.60); RDW 16.5 % (11.9-15.9); WHITE BLOOD COUNT 12.6 K/mm3 (4.0-10.0)
[2018-11-28] MEDS ORDERED: METOPROLOL TARTRATE 50 MG TABLET (FP) PO ONE (20:37)
[2018-11-28 21:01] LABS: ANION GAP 10 MMOL/L (8-16); BLOOD UREA NITROGEN 16 mg/dL (7-18); CALCIUM 7.8 mg/dL (8.5-10.1); CHLORIDE 98 mmol/L (98-107); CO2 29 mmol/L (21-32); GLUCOSE,RANDOM 150 mg/dL (74-106); POTASSIUM 3.3 mmol/L (3.5-5.1); SODIUM 137 mmol/L (136-145)
[2018-11-28] MEDS: MUPIROCIN 2% TOPICAL OINTMENT FOR DECOLONIZATION NS SCH (21:08)
[2018-11-28] MEDS: CHLORHEXIDINE GLUCONATE 4% CLEANSER FOR DECOLONIZATION TP SCH (21:08)
[2018-11-28] MEDS: PANTOPRAZOLE SODIUM 40 MG VIAL IVPUSH SCH (21:10)
[2018-11-28] MEDS ORDERED: PANTOPRAZOLE 40 MG TABLET (FP) PO SCH (22:00)
[2018-11-28] MEDS ORDERED: HEPARIN NA (PORCINE) 5,000 UNITS/ML 1ML VIAL SQ SCH (22:00)
[2018-11-29 05:42] LABS: BASO % 0.5 % (0-2.0); HEMATOCRIT 31.7 % (35.4-49); HEMOGLOBIN 10.1 GM/dL (11.7-16.9); LYMPH % 5.9 % (8-40); MCH 29.1 pg (25.7-33.7); MCHC 31.8 g/dl (32.0-35.9); MEAN CELL VOLUME 91.4 fl (80-96); MEAN PLT VOLUME 8.1 fl (7.5-11.1); MONO % 13.3 % (3.8-10.2); NEUT % 80.3 % (42.8-82.8); PLATELET COUNT 217 K/MM3 (134-434); RBC 3.47 M/mm3 (4.00-5.60); RDW 16.8 % (11.9-15.9); WHITE BLOOD COUNT 9.7 K/mm3 (4.0-10.0)
[2018-11-29] MEDS: INSULIN SLIDING SCALE (NOVOLOG) 1 VIAL SQ SCH ×4 (06:16→23:33)
[2018-11-29 07:11] LABS: ALBUMIN 2.8 g/dl (3.4-5.0); ALK PHOS 83 U/L (45-117); ANION GAP 10 MMOL/L (8-16); BILIRUBIN,TOTAL 0.5 mg/dL (0.2-1); BLOOD UREA NITROGEN 25 mg/dL (7-18); CALCIUM 7.7 mg/dL (8.5-10.1); CHLORIDE 95 mmol/L (98-107); CO2 31 mmol/L (21-32); CREATININE 6.5 mg/dL (0.55-1.3); GLUCOSE,RANDOM 208 mg/dL (74-106); SGOT/AST 18 U/L (15-37); SGPT/ALT 15 U/L (13-61); SODIUM 136 mmol/L (136-145); TOT PROT 6.4 g/dl (6.4-8.2)
--- NOTE | 2018-11-29 09:27 | PN ---
Progress Note (short form) - Note Progress Note: Pulm/CCM Pt seen and examined in ICU 24Hr: -HD yesterday without incident -Crit stable, no evidence of bleeding Vital Signs Temp 98.7 F 11/29/18 07:59 Pulse 86 11/29/18 08:20 Resp 18 11/29/18 08:20 BP 175/67 H 11/29/18 08:20 Pulse Ox 94 L 11/29/18 08:21 Intake & Output 11/28/18 11/28/18 11/29/18 11:59 23:59 11:59 Intake Total 100 200 Balance 100 200 Intake: IVPB 100 Oral 100 100 Other: Bowel Movement No Height 5 ft 11 in CBCD WBC 9.7 K/mm3 (4.0-10.0) 11/29/18 05:30 RBC 3.47 M/mm3 (4.00-5.60) L 11/29/18 05:30 Hgb 10.1 GM/dL (11.7-16.9) L 11/29/18 05:30 Hct 31.7 % (35.4-49) L 11/29/18 05:30 MCV 91.4 fl (80-96) 11/29/18 05:30 MCHC 31.8 g/dl (32.0-35.9) L 11/29/18 05:30 RDW 16.8 % (11.9-15.9) H 11/29/18 05:30 Plt Count 217 K/MM3 (134-434) 11/29/18 05:30 MPV 8.1 fl (7.5-11.1) 11/29/18 05:30 CMP Sodium 136 mmol/L (136-145) 11/29/18 05:30 Potassium 4.0 mmol/L (3.5-5.1) 11/29/18 05:30 Chloride 95 mmol/L (98-107) L 11/29/18 05:30 Carbon Dioxide 31 mmol/L (21-32) 11/29/18 05:30 Anion Gap 10 MMOL/L (8-16) 11/29/18 05:30 BUN 25 mg/dL (7-18) H 11/29/18 05:30 Creatinine 6.5 mg/dL (0.55-1.3) H 11/29/18 05:30 Creat Clearance w eGFR 8.91 (>60) 11/29/18 05:30 Calcium 7.7 mg/dL (8.5-10.1) L 11/29/18 05:30 Total Bilirubin 0.5 mg/dL (0.2-1) 11/29/18 05:30 AST 18 U/L (15-37) 11/29/18 05:30 ALT 15 U/L (13-61) 11/29/18 05:30 Alkaline Phosphatase 83 U/L (45-117) 11/29/18 05:30 Total Protein 6.4 g/dl (6.4-8.2) 11/29/18 05:30 Albumin 2.8 g/dl (3.4-5.0) L 11/29/18 05:30 Active Medications Chlorhexidine Gluconate (Hibiclens For Decolonization -) 1 applic TP HS [facility] Last Admin: 11/28/18 21:08 Dose: 1 applic Hydralazine HCl (Apresoline Injection -) 10 mg IVPUSH Q6H PRN PRN Reason: HYPERTENSION Last Admin: 11/28/18 19:00 Dose: 10 mg Sodium Chloride (Normal Saline -) 250 mls @ 3,000 mls/hr IV PRN PRN PRN Reason: Hypotension during Dialysis Stop: 11/29/18 10:25 Levofloxacin (Levaquin 500 Mg Premixed Ivpb -) 500 mg in 100 mls @ 100 mls/hr IVPB DAILY@0800 [facility]; Protocol Metronidazole (Flagyl 500mg Premixed Ivpb -) 500 mg in 100 mls @ 100 mls/hr IVPB Q8H-IV ELIZA Last Admin: 11/29/18 01:12 Dose: 100 mls/hr Insulin Aspart (Novolog Vial Sliding Scale -) 1 vial SQ ACHS [facility]; Protocol Last Admin: 11/29/18 06:16 Dose: 4 units Metoclopramide HCl (Reglan Injection -) 10 mg IVPUSH Q6H PRN PRN Reason: NAUSEA AND/OR VOMITING Metoprolol Succinate (Toprol Xl -) 100 mg PO 1900 [facility] Mupirocin (Bactroban Ointment (For Decolonization) -) 1 applic NS BID ELIZA Stop: 12/03/18 21:59 Last Admin: 11/28/18 21:08 Dose: 1 applic Nifedipine (Procardia Xl -) 60 mg PO DAILY [facility] Last Admin: 11/28/18 17:17 Dose: Not Given Pantoprazole Sodium (Protonix Iv) 40 mg IVPUSH BID [facility] Last Admin: 11/28/18 21:10 Dose: 40 mg PE: Gen: non toxic appearing man HEENT: NCAT, EOMI PULM: clear bilaterally CV: RRR, no m/r/g appreciated ABD: upper epigastric pain mildly increase with palpation, +BS, no rebound EXT: AVF with good thrill, no edema Neuro: no focal A/ 58 y/o man ESRD on HD with one episode of possible coffee ground emesis, found to have severe esophagitis on CT, stomach fluid filled but no obvious free air who is hemodynamically stable and without acute anemia (hgb higher than last admission) P/ -gi consult,Crit stable, no indication for urgent EGD -clear diet -back on home anti-hypertensive -started on ABX, would consider d/c as wbc wnl, afebrile -protonix -Hemodialysis as per Renal -maintain adequate access -ok for floor [id number]
[2018-11-29] MEDS: NIFEdipine E.R 60 MG TABLET (UD) PO SCH (09:57)
[2018-11-29] MEDS: PANTOPRAZOLE SODIUM 40 MG VIAL IVPUSH SCH (10:02)
--- NOTE | 2018-11-29 10:20 | PN ---
GI Progress Note Subjective: GI Note ( covering [facility] GI service) : No perforation on contrast CT but distal esophageal wall thickening is confirmed. Kathy denies heartburn but does admit to recent dysphagia but no regurgitation. He is tolerating liquids and is hungry for more food today. I have discussed EGD, biopsy and dilation with Kathy and informed of the potential for such complications as perforation and hemorrhage that could lead to transfusions and surgery. He has signed an informed consent. I will arrange it with Dr Joanna george - Objective Vital Signs: Vital Signs Temperature 98.7 F 11/29/18 07:59 Pulse Rate 86 11/29/18 08:20 Respiratory Rate 18 11/29/18 08:20 Blood Pressure 175/67 H 11/29/18 08:20 O2 Sat by Pulse Oximetry (%) 94 L 11/29/18 08:21 Laboratory Tests 11/27/18 11/28/18 11/29/18 11:00 03:37 05:30 WBC 15.0 H 9.7 Hgb 11.2 L 10.6 L 10.1 L BUN Creatinine Total Bilirubin AST ALT Alkaline Phosphatase Albumin 11/29/18 05:30 WBC Hgb BUN 25 H Creatinine 6.5 H Total Bilirubin 0.5 AST 18 ALT 15 Alkaline Phosphatase 83 Albumin 2.8 L Constitutional: No Distress ...Auscultate: Yes: Normoactive Bowel Sounds ...Palpate: Yes: Soft, Other (nontender) Labs: CBC, BMP 11/29/18 05:30 11/29/18 05:30 INR, PTT INR 1.03 (0.83-1.09) 11/27/18 11:00 Problem List - Problems (1) Dysphagia Assessment/Plan: Informed consent for EGD and possible dilation obtained Code(s): R13.10 - DYSPHAGIA, UNSPECIFIED (2) Constipation Assessment/Plan: Suspect functional constipation. Will start Miralax Code(s): K59.00 - CONSTIPATION, UNSPECIFIED (3) Hematemesis with nausea Assessment/Plan: No significant Hb drop and has resolved with Reglan supporting my suspicion of gastroparesis with vomiting of stagnant small bowel contents. Will try soft diet Code(s): K92.0 - HEMATEMESIS (4) Esophagus perforation Assessment/Plan: excluded by CT scan Code(s): K22.3 - PERFORATION OF ESOPHAGUS (5) GERD with esophagitis Code(s): K21.0 - GASTRO-ESOPHAGEAL REFLUX DISEASE WITH ESOPHAGITIS (6) Diabetes 1.5, managed as type 2 Code(s): E13.9 - OTHER SPECIFIED DIABETES MELLITUS WITHOUT COMPLICATIONS (7) Hypertension Code(s): I10 - ESSENTIAL (PRIMARY) HYPERTENSION (8) Dialysis patient Code(s): Z99.2 - DEPENDENCE ON RENAL DIALYSIS (9) Anemia Code(s): D64.9 - ANEMIA, UNSPECIFIED (10) Renal failure Code(s): N19 - UNSPECIFIED KIDNEY FAILURE (11) Esophagus disorder Code(s): K22.9 - DISEASE OF ESOPHAGUS, UNSPECIFIED
[2018-11-29] MEDS: MUPIROCIN 2% TOPICAL OINTMENT FOR DECOLONIZATION NS SCH ×2 (11:00→22:04)
--- NOTE | 2018-11-29 11:39 | PN ---
Physical Exam: SUBJECTIVE: Patient seen and examined OBJECTIVE: Vital Signs Period Temp Pulse Resp BP Sys/Glasgow Pulse Ox Last 24 Hr 98.3 F-99.6 F 56-106 14-18 113-242/60-104 93-98 GENERAL: The patient is awake, alert, and fully oriented, in no acute distress. HEAD: Normal with no signs of trauma. EYES: PERRL, extraocular movements intact, sclera anicteric, conjunctiva clear. No ptosis. ENT: Ears normal, nares patent, oropharynx clear without exudates, moist mucous membranes. NECK: Trachea midline, full range of motion, supple. LUNGS: Breath sounds equal, clear to auscultation bilaterally, no wheezes, no crackles, no accessory muscle use. HEART: Regular rate and rhythm, S1, S2 without murmur, rub or gallop. ABDOMEN: Soft, nontender, nondistended, normoactive bowel sounds, no guarding, no rebound, no hepatosplenomegaly, no masses. EXTREMITIES: 2+ pulses, warm, well-perfused, no edema. NEUROLOGICAL: Cranial nerves II through XII grossly intact. Normal speech, gait not observed. PSYCH: Normal mood, normal affect. SKIN: Warm, dry, normal turgor, no rashes or lesions noted Laboratory Results - last 24 hr 11/28/18 11/28/18 11/28/18 16:20 16:45 19:40 WBC RBC Hgb Hct MCV MCH MCHC RDW Plt Count MPV Absolute Neuts (auto) Neutrophils % Lymphocytes % Monocytes % Eosinophils % Basophils % Nucleated RBC % Sodium 137 Potassium 3.3 L Chloride 98 Carbon Dioxide 29 Anion Gap 10 BUN 62 H 16 Creatinine 12.0 H* 4.0 H Creat Clearance w eGFR 15.61 POC Glucometer [id number] Random Glucose 150 H Calcium 7.8 L Total Bilirubin AST ALT Alkaline Phosphatase Total Protein Albumin 11/28/18 11/29/18 11/29/18 20:00 05:30 05:30 WBC 12.6 H 9.7 RBC 3.46 L 3.47 L Hgb 10.1 L 10.1 L Hct 31.6 L 31.7 L MCV 91.1 91.4 MCH 29.3 29.1 MCHC 32.1 31.8 L RDW 16.5 H 16.8 H Plt Count 207 217 MPV 7.9 8.1 Absolute Neuts (auto) 10.4 H 7.8 Neutrophils % 82.6 80.3 Lymphocytes % 6.6 L D 5.9 L Monocytes % 10.5 H 13.3 H Eosinophils % 0.1 D 0.0 D Basophils % 0.2 0.5 Nucleated RBC % 0 0 Sodium 136 Potassium 4.0 Chloride 95 L Carbon Dioxide 31 Anion Gap 10 BUN 25 H Creatinine 6.5 H Creat Clearance w eGFR 8.91 POC Glucometer Random Glucose 208 H Calcium 7.7 L Total Bilirubin 0.5 AST 18 ALT 15 Alkaline Phosphatase 83 Total Protein 6.4 Albumin 2.8 L Active Medications Generic Name Dose Route Start Last Admin Trade Name Freq PRN Reason Stop Dose Admin Chlorhexidine Gluconate 1 applic 11/28/18 22:00 11/28/18 21:08 Hibiclens For Decolonization - TP 1 applic HS ELIZA Administration Hydralazine HCl 10 mg 11/28/18 19:15 11/28/18 19:00 Apresoline Injection - IVPUSH 10 mg Q6H PRN Administration HYPERTENSION Sodium Chloride 250 mls @ 3,000 mls/hr 11/28/18 10:24 Normal Saline - IV 11/29/18 10:25 PRN PRN Hypotension during Dialysis Levofloxacin 500 mg in 100 mls @ 100 mls/hr 11/29/18 08:00 11/29/18 09:58 Levaquin 500 Mg Premixed Ivpb - IVPB 100 mls/hr DAILY@0800 ELIZA Administration Protocol Insulin Aspart 1 vial 11/28/18 16:30 11/29/18 06:16 Novolog Vial Sliding Scale - SQ 4 units ACHS ELIZA Administration Protocol Metoclopramide HCl 10 mg 11/28/18 13:33 Reglan Injection - IVPUSH Q6H PRN NAUSEA AND/OR VOMITING Metoprolol Succinate 100 mg 11/29/18 19:00 Toprol Xl - PO 1900 ELIZA Mupirocin 1 applic 11/28/18 22:00 11/28/18 21:08 Bactroban Ointment (For Decolonization) - NS 12/03/18 21:59 1 applic BID ELIZA Administration Nifedipine 60 mg 11/28/18 12:00 11/29/18 09:57 Procardia Xl - PO 60 mg DAILY ELIZA Administration Pantoprazole Sodium 40 mg 11/29/18 11:45 Protonix - PO BID ELIZA Polyethylene Glycol 17 gm 11/29/18 14:00 Miralax (For Daily Use) - PO TID ELIZA ASSESSMENT/PLAN: 58 y/o M W DM, HTN, ESRDS on HD, P/W abdominal pain and nausea/ vomiting, stable VS and CBC. Initially there was a concern for esophageal perforation in the setting of abnormal CXR,which was R/O with chest CT. Dyspepsia: evaluated by GI: Plan for treatment for dyspepsia and not GIB at this time possible EGD as O/P Will get gastric emptying studies as O/P as on Friday is getting EGD Is tolerating clear liquid at this time Will change to po PPI bid on metocloprimide for possible gastropathy HTN: will hold prior to the HD today but will restart home medications after that DM: on FS AC, QHS and insulin SC ESRD on HD: been managed by nephrology and has had tolerated his HD well yesterday FC Dispo: home in 2 days DVT PPX:heparin patient can be transferred to regular medicine floor Visit type - Emergency Visit Emergency Visit: No - New Patient This patient is new to me today: No - Critical Care Critical Care patient: No - Discharge Referral Referred to [facility] Med P.C.: No
[2018-11-29] MEDS: PANTOPRAZOLE 40 MG TABLET (FP) PO SCH ×2 (11:43→22:06)
[2018-11-29] MEDS: POLYETHYLENE GLYCOL 3350 119 GM BTL PO SCH ×3 (11:48→22:05)
--- NOTE | 2018-11-29 14:42 | PN ---
Progress Note, Physician History of Present Illness: Pt seen and examined at bedside. He is awake and alert. He denies shortness of breath. He denies abdominal pain. - Current Medication List Current Medications: Active Medications Chlorhexidine Gluconate (Hibiclens For Decolonization -) 1 applic TP HS [facility] Last Admin: 11/28/18 21:08 Dose: 1 applic Hydralazine HCl (Apresoline Injection -) 10 mg IVPUSH Q6H PRN PRN Reason: HYPERTENSION Last Admin: 11/28/18 19:00 Dose: 10 mg Sodium Chloride (Normal Saline -) 250 mls @ 3,000 mls/hr IV PRN PRN PRN Reason: Hypotension during Dialysis Stop: 11/29/18 10:25 Levofloxacin (Levaquin 500 Mg Premixed Ivpb -) 500 mg in 100 mls @ 100 mls/hr IVPB DAILY@0800 [facility]; Protocol Last Admin: 11/29/18 09:58 Dose: 100 mls/hr Insulin Aspart (Novolog Vial Sliding Scale -) 1 vial SQ ACHS [facility]; Protocol Last Admin: 11/29/18 11:48 Dose: 2 units Metoclopramide HCl (Reglan Injection -) 10 mg IVPUSH Q6H PRN PRN Reason: NAUSEA AND/OR VOMITING Metoprolol Succinate (Toprol Xl -) 100 mg PO 1900 [facility] Mupirocin (Bactroban Ointment (For Decolonization) -) 1 applic NS BID [facility] Stop: 12/03/18 21:59 Last Admin: 11/28/18 21:08 Dose: 1 applic Nifedipine (Procardia Xl -) 60 mg PO DAILY [facility] Last Admin: 11/29/18 09:57 Dose: 60 mg Pantoprazole Sodium (Protonix -) 40 mg PO BID [facility] Last Admin: 11/29/18 11:43 Dose: Not Given Polyethylene Glycol (Miralax (For Daily Use) -) 17 gm PO TID [facility] Last Admin: 11/29/18 11:48 Dose: 17 grams - Objective Vital Signs: Vital Signs Temperature 98.1 F 11/29/18 14:00 Pulse Rate 82 11/29/18 14:00 Respiratory Rate 18 11/29/18 12:00 Blood Pressure 139/62 11/29/18 14:00 O2 Sat by Pulse Oximetry (%) 94 L 11/29/18 08:21 Constitutional: Yes: Calm Eyes: Yes: Conjunctiva Clear HENT: Yes: Atraumatic Cardiovascular: Yes: S1, S2 Respiratory: Yes: CTA Bilaterally Gastrointestinal: Yes: Soft Genitourinary: Yes: WNL Musculoskeletal: Yes: WNL Edema: No Neurological: Yes: Oriented Psychiatric: Yes: Oriented Labs: CBC, BMP 11/29/18 05:30 11/29/18 05:30 INR, PTT INR 1.03 (0.83-1.09) 11/27/18 11:00 Problem List - Problems (1) ESRD (end stage renal disease) Code(s): N18.6 - END STAGE RENAL DISEASE (2) Dialysis patient Code(s): Z99.2 - DEPENDENCE ON RENAL DIALYSIS (3) Elevated lipase Code(s): R74.8 - ABNORMAL LEVELS OF OTHER SERUM ENZYMES (4) Hyperkalemia Code(s): E87.5 - HYPERKALEMIA Assessment/Plan Current Medications Generic Name Dose Route Start Last Admin Trade Name Freq PRN Reason Stop Dose Admin Chlorhexidine Gluconate 1 applic 11/28/18 22:00 11/28/18 21:08 Hibiclens For Decolonization - TP 1 applic HS ELIZA Administration Hydralazine HCl 10 mg 11/28/18 19:15 11/28/18 19:00 Apresoline Injection - IVPUSH 10 mg Q6H PRN Administration HYPERTENSION Sodium Chloride 250 mls @ 3,000 mls/hr 11/28/18 10:24 Normal Saline - IV 11/29/18 10:25 PRN PRN Hypotension during Dialysis Levofloxacin 500 mg in 100 mls @ 100 mls/hr 11/29/18 08:00 11/29/18 09:58 Levaquin 500 Mg Premixed Ivpb - IVPB 100 mls/hr DAILY@0800 [facility] Administration Protocol Insulin Aspart 1 vial 11/28/18 16:30 11/29/18 11:48 Novolog Vial Sliding Scale - SQ 2 units ACHS ELIZA Administration Protocol Metoclopramide HCl 10 mg 11/28/18 13:33 Reglan Injection - IVPUSH Q6H PRN NAUSEA AND/OR VOMITING Metoprolol Succinate 100 mg 11/29/18 19:00 Toprol Xl - PO 1900 [facility] Mupirocin 1 applic 11/28/18 22:00 11/28/18 21:08 Bactroban Ointment (For Decolonization) - NS 12/03/18 21:59 1 applic BID ELIZA Administration Nifedipine 60 mg 11/28/18 12:00 11/29/18 09:57 Procardia Xl - PO 60 mg DAILY ELIZA Administration Pantoprazole Sodium 40 mg 11/29/18 11:45 11/29/18 11:43 Protonix - PO Not Given BID ELIZA Polyethylene Glycol 17 gm 11/29/18 14:00 11/29/18 11:48 Miralax (For Daily Use) - PO 17 grams TID ELIZA Administration Impression 1. ESRD 2. abdominal pain 3. nausea and vomiting 4. HTN 5. anemia 6. hyperkalemia Plan - HD in am - pt going for endoscopy tomorrow, discussed with GI - hg stable - repeat bp is improved - increase nifedipine if bp is elevated - will follow Dr Ramey
[2018-11-29] MEDS: CHLORHEXIDINE GLUCONATE 4% CLEANSER FOR DECOLONIZATION TP SCH (22:02)
[2018-11-30 05:37] LABS: BASO % 0.8 % (0-2.0); HEMOGLOBIN 9.9 GM/dL (11.7-16.9); MCH 29.2 pg (25.7-33.7); MCHC 31.9 g/dl (32.0-35.9); MEAN CELL VOLUME 91.4 fl (80-96); MEAN PLT VOLUME 7.9 fl (7.5-11.1); MONO % 13.6 % (3.8-10.2); NEUT % 66.6 % (42.8-82.8); PLATELET COUNT 226 K/MM3 (134-434); RBC 3.39 M/mm3 (4.00-5.60); RDW 16.3 % (11.9-15.9); WHITE BLOOD COUNT 8.3 K/mm3 (4.0-10.0)
[2018-11-30] MEDS: hydrALAZINE HCL 20 MG/ML VIAL IVPUSH PRN ×2 (06:00→20:04)
[2018-11-30 06:20] LABS: ANION GAP 12 MMOL/L (8-16); BLOOD UREA NITROGEN 39 mg/dL (7-18); CALCIUM 7.2 mg/dL (8.5-10.1); CHLORIDE 95 mmol/L (98-107); CO2 28 mmol/L (21-32); GLUCOSE,RANDOM 96 mg/dL (74-106); POTASSIUM 4.1 mmol/L (3.5-5.1); SODIUM 136 mmol/L (136-145)
[2018-11-30] MEDS: INSULIN SLIDING SCALE (NOVOLOG) 1 VIAL SQ SCH ×3 (06:21→17:52)
[2018-11-30] MEDS: POLYETHYLENE GLYCOL 3350 119 GM BTL PO SCH ×3 (06:21→22:27)
[2018-11-30 06:25] LABS: CREATININE 9.3 mg/dL (0.55-1.3)
--- NOTE | 2018-11-30 07:08 | PN ---
Physical Exam: SUBJECTIVE: Patient seen and examined. Reports continued substernal burning sensation, however improved relative to first presentation. OBJECTIVE: Vital Signs Period Temp Pulse Resp BP Sys/Glasgow Pulse Ox Last 24 Hr 98.1 F-99.5 F 56-100 11-18 113-181/53-82 93-94 Gen: Awake, alert, A&Ox3 HEENT: NCAT, EOMI PULM: CTAB, breathing comfortably on room air w/ symmetric chest rise CV: RRR, no murmurs appreciated ABD: Mild epigastric TTP w/o rebound or guarding, +BS EXT: AVF with good thrill, no edema Neuro: No focal deficits, speech appropriate Active Medications Generic Name Dose Route Start Last Admin Trade Name Freq PRN Reason Stop Dose Admin Chlorhexidine Gluconate 1 applic 11/28/18 22:00 11/29/18 22:02 Hibiclens For Decolonization - TP 1 applic HS ELIZA Administration Epoetin Dimitrios 4,000 unit 11/30/18 14:42 Epogen - IVPUSH 11/30/18 14:43 ONCE ONE Hydralazine HCl 10 mg 11/28/18 19:15 11/30/18 06:00 Apresoline Injection - IVPUSH 10 mg Q6H PRN Administration HYPERTENSION Levofloxacin 500 mg in 100 mls @ 100 mls/hr 11/29/18 08:00 11/29/18 09:58 Levaquin 500 Mg Premixed Ivpb - IVPB 100 mls/hr DAILY@0800 ELIZA Administration Protocol Sodium Chloride 250 mls @ 3,000 mls/hr 11/29/18 14:42 Normal Saline - IV 11/30/18 14:42 PRN PRN Hypotension during Dialysis Insulin Aspart 1 vial 11/30/18 07:00 11/30/18 06:21 Novolog Vial Sliding Scale - SQ Not Given TIDAC [facility] Protocol Metoclopramide HCl 10 mg 11/28/18 13:33 Reglan Injection - IVPUSH Q6H PRN NAUSEA AND/OR VOMITING Metoprolol Succinate 100 mg 11/29/18 19:00 11/29/18 22:00 Toprol Xl - PO 100 mg 1900 ELIZA Administration Mupirocin 1 applic 11/28/18 22:00 11/29/18 22:04 Bactroban Ointment (For Decolonization) - NS 12/03/18 21:59 1 applic BID ELIZA Administration Nifedipine 60 mg 11/28/18 12:00 11/29/18 09:57 Procardia Xl - PO 60 mg DAILY ELIZA Administration Pantoprazole Sodium 40 mg 11/29/18 11:45 11/29/18 22:06 Protonix - PO 40 mg BID ELIZA Administration Polyethylene Glycol 17 gm 11/29/18 14:00 11/30/18 06:21 Miralax (For Daily Use) - PO Not Given TID ELIZA ASSESSMENT/PLAN: The patient is a 58M w/ a history of ESRD (iHD) who presented with one episode of possible coffee ground emesis and was found to have severe esophagitis on CT. Neuro Denies pain CV HTN -Cont home medication Pulm Breathing comfortably on RA, CTM GI Possible upper GI bleed Esophagitis -GI consulted -H/H stable -EGD planned for today -No evidence of perforation on imaging -Protonix IV ESRD -iHD Heme Hgb 9.9, stable, CTM -No indication for transfusion at this time ID Abx per ID -Levaquin Endo T2DM -ISS, BGM Dispo: Patient does not require ICU level of care, will transfer to floor today Visit type - Emergency Visit Emergency Visit: Yes ED Registration Date: 11/27/18 Care time: The patient presented to the Emergency Department on the above date and was hospitalized for further evaluation of their emergent condition. - New Patient This patient is new to me today: Yes Date on this admission: 11/30/18 - Critical Care Critical Care patient: Yes Total Critical Care Time (in minutes): 35 Critical Care Statement: The care of this patient involved high complexity decision making to prevent further life threatening deterioration of the patient 's condition and/or to evaluate & treat vital organ system(s) failure or risk of failure.
[2018-11-30] MEDS: NIFEdipine E.R 60 MG TABLET (UD) PO SCH ×2 (08:18→12:59)
--- NOTE | 2018-11-30 12:04 | PN ---
Teaching Attending Note Name of Resident: Sd Perez ATTENDING PHYSICIAN STATEMENT I saw and evaluated the patient. I reviewed the resident's note and discussed the case with the resident. I agree with the resident's findings and plan as documented. SUBJECTIVE: Patient seen and examined in ICU. S/P EGD, results are pending. No occult bleeding. No CP or SOB. Intake & Output 11/27/18 11/28/18 11/29/18 11/30/18 23:59 23:59 23:59 23:59 Intake Total 100 680 150 Balance 100 680 150 Weight 161 lb 2.526 oz Last Vital Signs Temp Pulse Resp BP Pulse Ox 98.1 F 80 12 161/69 96 11/30/18 10:31 11/30/18 11:45 11/30/18 11:45 11/30/18 11:45 11/30/18 11:45 Active Medications Chlorhexidine Gluconate (Hibiclens For Decolonization -) 1 applic TP HS [facility] Last Admin: 11/29/18 22:02 Dose: 1 applic Epoetin Dimitrios (Epogen -) 4,000 unit IVPUSH ONCE ONE Stop: 11/30/18 14:43 Hydralazine HCl (Apresoline Injection -) 10 mg IVPUSH Q6H PRN PRN Reason: HYPERTENSION Last Admin: 11/30/18 06:00 Dose: 10 mg Levofloxacin (Levaquin 500 Mg Premixed Ivpb -) 500 mg in 100 mls @ 100 mls/hr IVPB DAILY@0800 [facility]; Protocol Last Admin: 11/30/18 08:47 Dose: 100 mls/hr Sodium Chloride (Normal Saline -) 250 mls @ 3,000 mls/hr IV PRN PRN PRN Reason: Hypotension during Dialysis Stop: 11/30/18 14:42 Insulin Aspart (Novolog Vial Sliding Scale -) 1 vial SQ TIDAC [facility]; Protocol Last Admin: 11/30/18 06:21 Dose: Not Given Metoclopramide HCl (Reglan Injection -) 10 mg IVPUSH Q6H PRN PRN Reason: NAUSEA AND/OR VOMITING Metoprolol Succinate (Toprol Xl -) 100 mg PO 1900 [facility]A Last Admin: 11/29/18 22:00 Dose: 100 mg Mupirocin (Bactroban Ointment (For Decolonization) -) 1 applic NS BID [facility] Stop: 12/03/18 21:59 Last Admin: 11/29/18 22:04 Dose: 1 applic Nifedipine (Procardia Xl -) 60 mg PO DAILY [facility] Last Admin: 11/30/18 08:18 Dose: 60 mg Pantoprazole Sodium (Protonix -) 40 mg PO BID [facility] Last Admin: 11/29/18 22:06 Dose: 40 mg Polyethylene Glycol (Miralax (For Daily Use) -) 17 gm PO TID [facility] Last Admin: 11/30/18 06:21 Dose: Not Given PE: Gen: Awake and alert, NAD HEENT: NCAT, EOMI PULM: clear bilaterally CV: RRR, no m/r/g appreciated ABD: Non-tender, (+) BS, no rebound EXT: AVF with good thrill, no edema Neuro: no focal IMP: Acute GI Bleed ESRD on HD Coffee ground emesis Severe esophagitis on CT PLAN: Normal transfusion thresholds O2 as needed PO as per GI HD per Renal PPI Floor Dr Otero
[2018-11-30] MEDS: PANTOPRAZOLE 40 MG TABLET (FP) PO SCH ×3 (12:59→21:31)
[2018-11-30] MEDS ORDERED: PNEUMOC 13-VAL CONJ-DIP CRM/PF 0.5 ML DISP.SYRIN IM ONE (13:00)
[2018-11-30] MEDS: MUPIROCIN 2% TOPICAL OINTMENT FOR DECOLONIZATION NS SCH ×2 (13:01→22:26)
--- NOTE | 2018-11-30 13:25 | PN ---
Physical Exam: SUBJECTIVE: Patient seen and examined at bedside this morning. Patient endorses dull epigastric pain that is nonradiating. Denies nausea, vomiting, diarrhea. Patient denies episodes of coffee-ground emesis since hospital admission. OBJECTIVE: Vital Signs Period Temp Pulse Resp BP Sys/Glasgow Pulse Ox Last 24 Hr 98.1 F-98.9 F 72-88 11-80 133-180/61-84 94-99 GENERAL: Awake, alert, and fully oriented, in no acute distress. HEAD: Normal with no signs of trauma. EYES: Pupils equal, round and reactive to light, extraocular movements intact, sclera anicteric, conjunctiva clear. EARS, NOSE, THROAT: Oropharynx clear without exudates. Moist mucous membranes. NECK: Supple without lymphadenopathy. LUNGS: Breath sounds equal, clear to auscultation bilaterally. No wheezes, and no crackles. No accessory muscle use. HEART: Regular rate and rhythm, normal S1 and S2 without murmur, rub or gallop. ABDOMEN: Soft, tender to deep palpation within epigastrum, not distended. Normoactive bowel sounds X4 quadrants. No guarding, no rebound tenderness, No hepatomegaly or splenomegaly palpated or percussed. MUSCULOSKELETAL: Normal range of motion at all joints. No bony deformities or tenderness. Strength 5/5 b/l upper and lower extremities. UPPER EXTREMITIES: 2+ radial pulses b/l. Warm, well-perfused. No cyanosis. No clubbing. No peripheral edema. Left upper extremity AV fistula with palpable thrill. LOWER EXTREMITIES: 2+ dorsalis pedis pulses b/l. Warm, well-perfused. No calf tenderness. No peripheral edema b/l lower extremities. NEUROLOGICAL: Cranial nerves II-XII intact. No gross focal deficits. PSYCHIATRIC: Cooperative. Good eye contact. Appropriate mood and affect. SKIN: Warm, dry. Laboratory Results - last 24 hr 11/28/18 11/29/18 11/29/18 16:20 05:35 11:30 WBC RBC Hgb Hct MCV MCH MCHC RDW Plt Count MPV Absolute Neuts (auto) Neutrophils % Lymphocytes % Monocytes % Eosinophils % Basophils % Nucleated RBC % Sodium Potassium Chloride Carbon Dioxide Anion Gap BUN Creatinine Creat Clearance w eGFR POC Glucometer [phone] Random Glucose Hemoglobin A1c % Calcium C-Reactive Protein Hep C Ab Diagnostic 0.2 11/29/18 11/30/18 11/30/18 16:42 05:15 05:15 WBC 8.3 RBC 3.39 L Hgb 9.9 L Hct 31.0 L MCV 91.4 MCH 29.2 MCHC 31.9 L RDW 16.3 H Plt Count 226 MPV 7.9 Absolute Neuts (auto) 5.5 Neutrophils % 66.6 Lymphocytes % 14.0 D Monocytes % 13.6 H Eosinophils % 5.0 H D Basophils % 0.8 Nucleated RBC % 0 Sodium 136 Potassium 4.1 Chloride 95 L Carbon Dioxide 28 Anion Gap 12 BUN 39 H Creatinine 9.3 H* Creat Clearance w eGFR 5.90 POC Glucometer [phone] Random Glucose 96 Hemoglobin A1c % Calcium 7.2 L C-Reactive Protein 2.9 H Hep C Ab Diagnostic 11/30/18 05:15 WBC RBC Hgb Hct MCV MCH MCHC RDW Plt Count MPV Absolute Neuts (auto) Neutrophils % Lymphocytes % Monocytes % Eosinophils % Basophils % Nucleated RBC % Sodium Potassium Chloride Carbon Dioxide Anion Gap BUN Creatinine Creat Clearance w eGFR POC Glucometer Random Glucose Hemoglobin A1c % 5.6 Calcium C-Reactive Protein Hep C Ab Diagnostic Active Medications Generic Name Dose Route Start Last Admin Trade Name Freq PRN Reason Stop Dose Admin Chlorhexidine Gluconate 1 applic 11/28/18 22:00 11/29/18 22:02 Hibiclens For Decolonization - TP 1 applic HS ELIZA Administration Epoetin Dimitrios 4,000 unit 11/30/18 14:42 Epogen - IVPUSH 11/30/18 14:43 ONCE ONE Hydralazine HCl 10 mg 11/28/18 19:15 11/30/18 06:00 Apresoline Injection - IVPUSH 10 mg Q6H PRN Administration HYPERTENSION Levofloxacin 500 mg in 100 mls @ 100 mls/hr 11/29/18 08:00 11/30/18 08:47 Levaquin 500 Mg Premixed Ivpb - IVPB 100 mls/hr DAILY@0800 [facility] Administration Protocol Sodium Chloride 250 mls @ 3,000 mls/hr 11/29/18 14:42 Normal Saline - IV 11/30/18 14:42 PRN PRN Hypotension during Dialysis Insulin Aspart 1 vial 11/30/18 07:00 11/30/18 13:00 Novolog Vial Sliding Scale - SQ Not Given TIDAC [facility] Protocol Metoclopramide HCl 10 mg 11/28/18 13:33 Reglan Injection - IVPUSH Q6H PRN NAUSEA AND/OR VOMITING Metoprolol Succinate 100 mg 11/29/18 19:00 11/29/18 22:00 Toprol Xl - PO 100 mg 1900 ELIZA Administration Mupirocin 1 applic 11/28/18 22:00 11/30/18 13:01 Bactroban Ointment (For Decolonization) - NS 12/03/18 21:59 1 applic BID ELIZA Administration Nifedipine 60 mg 11/28/18 12:00 11/30/18 12:59 Procardia Xl - PO Not Given DAILY ELIZA Pantoprazole Sodium 40 mg 11/29/18 11:45 11/30/18 12:59 Protonix - PO Not Given BID [facility] Pneumococcal 13-Valent Conj Vacc 0.5 ml 11/30/18 13:00 Prevnar 13 Syringe - IM 11/30/18 13:01 .ONCE ONE Polyethylene Glycol 17 gm 11/29/18 14:00 11/30/18 06:21 Miralax (For Daily Use) - PO Not Given TID [facility] ASSESSMENT/PLAN: Patient is a 58 year old male with history of hypertension, diabetes mellitus, ESRD on HD Fri/Fri/ Fri, presents with complaint of coffee ground emesis. Coffee ground emesis -CT scan shows concentric thoracic esophageal wall thickening suggestive of esophagitis. Eosinophils not elevated. -Boerhaave syndrome ruled out with CT chest. -Endoscopy shows esophagitis witin mid, and lower third esophagus. Mild gastritis gastruc antrum. -Protonix drip changed to 40mg PO BID -Head of bed elevated for 8 hours/ day -GI consult (Dr. Vidales) appreciated. -Reglan 10mg PO Q6H PRN for nausea, vomiting -Follow vital signs, and Hb/ Hct closely. ESRD -Patient is on HD Fri/ Fri/ Fri -Nephrology consult (Dr. Ramey) appreciated. -Last HD yesterday. 1kg removed. Tolerated well. Hypertension -Metoprolol 100mg PO daily -Nifedipine 60mg PO daily Hyponatremia, Hyperkalemia -Resolved. -Follow CMP closely Diabetes mellitus -Insulin sliding scale ACHS -BGM ACHS FEN -No IV fluids. -Follow CMP closely -Clear liquid diet Prophylaxis -SCDs b/l lower extremities Disposition -Patient for transfer to medical-surgical floor. Visit type - Emergency Visit Emergency Visit: Yes ED Registration Date: 11/27/18 Care time: The patient presented to the Emergency Department on the above date and was hospitalized for further evaluation of their emergent condition. - New Patient This patient is new to me today: No - Critical Care Critical Care patient: Yes Total Critical Care Time (in minutes): 35 Critical Care Statement: The care of this patient involved high complexity decision making to prevent further life threatening deterioration of the patient 's condition and/or to evaluate & treat vital organ system(s) failure or risk of failure. - Discharge Referral Referred to [facility] Med P.C.: No
--- NOTE | 2018-11-30 13:26 | PN ---
Teaching Attending Note Name of Resident: Thee Gastelum ATTENDING PHYSICIAN STATEMENT I saw and evaluated the patient. I reviewed the resident's note and discussed the case with the resident. I agree with the resident's findings and plan as documented. SUBJECTIVE: in no distress, is to get EGD today, can be DCed home pending the EGD results OBJECTIVE: Last Vital Signs Temp Pulse Resp BP Pulse Ox 98.1 F 80 12 161/69 96 11/30/18 10:31 11/30/18 11:45 11/30/18 11:45 11/30/18 11:45 11/30/18 11:45 in no distress CTAB CVS:S1S2 EXT: no edema CBCD WBC 8.3 K/mm3 (4.0-10.0) 11/30/18 05:15 RBC 3.39 M/mm3 (4.00-5.60) L 11/30/18 05:15 Hgb 9.9 GM/dL (11.7-16.9) L 11/30/18 05:15 Hct 31.0 % (35.4-49) L 11/30/18 05:15 MCV 91.4 fl (80-96) 11/30/18 05:15 MCHC 31.9 g/dl (32.0-35.9) L 11/30/18 05:15 RDW 16.3 % (11.9-15.9) H 11/30/18 05:15 Plt Count 226 K/MM3 (134-434) 11/30/18 05:15 MPV 7.9 fl (7.5-11.1) 11/30/18 05:15 CMP Sodium 136 mmol/L (136-145) 11/30/18 05:15 Potassium 4.1 mmol/L (3.5-5.1) 11/30/18 05:15 Chloride 95 mmol/L (98-107) L 11/30/18 05:15 Carbon Dioxide 28 mmol/L (21-32) 11/30/18 05:15 Anion Gap 12 MMOL/L (8-16) 11/30/18 05:15 BUN 39 mg/dL (7-18) H 11/30/18 05:15 Creatinine 9.3 mg/dL (0.55-1.3) H* 11/30/18 05:15 Creat Clearance w eGFR 5.90 (>60) 11/30/18 05:15 Random Glucose 96 mg/dL (74-106) 11/30/18 05:15 Calcium 7.2 mg/dL (8.5-10.1) L 11/30/18 05:15 Total Bilirubin 0.5 mg/dL (0.2-1) 11/29/18 05:30 AST 18 U/L (15-37) 11/29/18 05:30 ALT 15 U/L (13-61) 11/29/18 05:30 Alkaline Phosphatase 83 U/L (45-117) 11/29/18 05:30 Total Protein 6.4 g/dl (6.4-8.2) 11/29/18 05:30 Albumin 2.8 g/dl (3.4-5.0) L 11/29/18 05:30 CARDIAC ENZYMES Troponin I 0.05 ng/ml (0.00-0.05) 11/27/18 17:15 ASSESSMENT AND PLAN: 58 y/o M W DM, HTN, ESRDS on HD, P/W abdominal pain and nausea/ vomiting, stable VS and CBC. Initially there was a concern for esophageal perforation in the setting of abnormal CXR,which was R/O with chest CT. Dyspepsia: evaluated by GI: Plan for treatment for dyspepsia and not GIB at this time, Severe esophagitis possible EGD as O/P Will get gastric emptying studies as o/p pending results of the EGD Is tolerating clear liquid at this time Will change to po PPI bid po on metocloprimide for possible gastropathy HTN: will hold prior to the HD today but will restart home medications after that DM: on FS AC, QHS and insulin SC ESRD on HD: been managed by nephrology and has had tolerated his HD well yesterday FC Dispo: home in 2 days DVT PPX:heparin patient can be transferred to regular medicine floor
[2018-11-30] MEDS ORDERED: SODIUM CHLORIDE 250 ML IV PRN (15:26)
[2018-11-30] MEDS ORDERED: EPOETIN ALFA 2,000 UNIT/1 ML VIAL IVPUSH ONE (15:30)
[2018-11-30] MEDS ORDERED: PNEUMOCOCCAL 23 VACCINE 0.5 ML VIAL IM ONE (16:30)
--- NOTE | 2018-11-30 17:00 | PN ---
Progress Note, Physician History of Present Illness: Pt seen and examined. He had the endoscop today. He is getting HD. - Current Medication List Current Medications: Active Medications Chlorhexidine Gluconate (Hibiclens For Decolonization -) 1 applic TP HS [facility] Last Admin: 11/29/18 22:02 Dose: 1 applic Hydralazine HCl (Apresoline Injection -) 10 mg IVPUSH Q6H PRN PRN Reason: HYPERTENSION Last Admin: 11/30/18 06:00 Dose: 10 mg Levofloxacin (Levaquin 500 Mg Premixed Ivpb -) 500 mg in 100 mls @ 100 mls/hr IVPB DAILY@0800 [facility]; Protocol Last Admin: 11/30/18 08:47 Dose: 100 mls/hr Sodium Chloride (Normal Saline -) 250 mls @ 3,000 mls/hr IV PRN PRN PRN Reason: Hypotension during Dialysis Stop: 11/30/18 22:00 Insulin Aspart (Novolog Vial Sliding Scale -) 1 vial SQ TIDAC [facility]; Protocol Last Admin: 11/30/18 13:00 Dose: Not Given Metoclopramide HCl (Reglan Injection -) 10 mg IVPUSH Q6H PRN PRN Reason: NAUSEA AND/OR VOMITING Metoprolol Succinate (Toprol Xl -) 100 mg PO 1900 [facility] Last Admin: 11/29/18 22:00 Dose: 100 mg Mupirocin (Bactroban Ointment (For Decolonization) -) 1 applic NS BID [facility] Stop: 12/03/18 21:59 Last Admin: 11/30/18 13:01 Dose: 1 applic Nifedipine (Procardia Xl -) 60 mg PO DAILY [facility] Last Admin: 11/30/18 12:59 Dose: Not Given Pantoprazole Sodium (Protonix -) 40 mg PO BID [facility] Last Admin: 11/30/18 12:59 Dose: Not Given Polyethylene Glycol (Miralax (For Daily Use) -) 17 gm PO TID [facility] Last Admin: 11/30/18 06:21 Dose: Not Given - Objective Vital Signs: Vital Signs Temperature 98.1 F 11/30/18 10:31 Pulse Rate 87 11/30/18 15:00 Respiratory Rate 18 11/30/18 15:00 Blood Pressure 179/65 H 11/30/18 15:00 O2 Sat by Pulse Oximetry (%) 96 11/30/18 11:45 Constitutional: Yes: Calm Eyes: Yes: Conjunctiva Clear HENT: Yes: Atraumatic Neck: Yes: Supple Cardiovascular: Yes: S1, S2 Respiratory: Yes: CTA Bilaterally Gastrointestinal: Yes: Soft Genitourinary: Yes: WNL Edema: No Neurological: Yes: Oriented Psychiatric: Yes: Oriented Labs: CBC, BMP 11/30/18 05:15 11/30/18 05:15 INR, PTT INR 1.03 (0.83-1.09) 11/27/18 11:00 Problem List - Problems (1) ESRD (end stage renal disease) Code(s): N18.6 - END STAGE RENAL DISEASE (2) Dialysis patient Code(s): Z99.2 - DEPENDENCE ON RENAL DIALYSIS (3) Elevated lipase Code(s): R74.8 - ABNORMAL LEVELS OF OTHER SERUM ENZYMES (4) Hyperkalemia Code(s): E87.5 - HYPERKALEMIA Assessment/Plan Current Medications Generic Name Dose Route Start Last Admin Trade Name Freq PRN Reason Stop Dose Admin Chlorhexidine Gluconate 1 applic 11/28/18 22:00 11/29/18 22:02 Hibiclens For Decolonization - TP 1 applic HS ELIZA Administration Hydralazine HCl 10 mg 11/28/18 19:15 11/30/18 06:00 Apresoline Injection - IVPUSH 10 mg Q6H PRN Administration HYPERTENSION Levofloxacin 500 mg in 100 mls @ 100 mls/hr 11/29/18 08:00 11/30/18 08:47 Levaquin 500 Mg Premixed Ivpb - IVPB 100 mls/hr DAILY@0800 [facility] Administration Protocol Sodium Chloride 250 mls @ 3,000 mls/hr 11/30/18 15:26 Normal Saline - IV 11/30/18 22:00 PRN PRN Hypotension during Dialysis Insulin Aspart 1 vial 11/30/18 07:00 11/30/18 13:00 Novolog Vial Sliding Scale - SQ Not Given TIDAC [facility] Protocol Metoclopramide HCl 10 mg 11/28/18 13:33 Reglan Injection - IVPUSH Q6H PRN NAUSEA AND/OR VOMITING Metoprolol Succinate 100 mg 11/29/18 19:00 11/29/18 22:00 Toprol Xl - PO 100 mg 1900 [facility] Administration Mupirocin 1 applic 11/28/18 22:00 11/30/18 13:01 Bactroban Ointment (For Decolonization) - NS 12/03/18 21:59 1 applic BID ELIZA Administration Nifedipine 60 mg 11/28/18 12:00 11/30/18 12:59 Procardia Xl - PO Not Given DAILY [facility]IZA Pantoprazole Sodium 40 mg 11/29/18 11:45 11/30/18 12:59 Protonix - PO Not Given BID ELIZA Polyethylene Glycol 17 gm 11/29/18 14:00 11/30/18 06:21 Miralax (For Daily Use) - PO Not Given TID [facility] Impression 1. ESRD 2. abdominal pain 3. nausea and vomiting 4. HTN 5. anemia 6. hyperkalemia Plan - HD today - follow endoscopy results - hg stable - increase nifedipine if bp is elevated - will follow Dr Ramey
[2018-11-30] MEDS ORDERED: HEMOQUE TEST 1 EACH EACH ONE (17:33)
[2018-11-30] MEDS ORDERED: NIFEdipine E.R 60 MG TABLET (UD) PO ONE (21:20)
[2018-11-30] MEDS: CHLORHEXIDINE GLUCONATE 4% CLEANSER FOR DECOLONIZATION TP SCH (22:26)
[2018-12-01] MEDS: hydrALAZINE HCL 20 MG/ML VIAL IVPUSH PRN (05:23)
[2018-12-01 05:58] LABS: BASO % 0.8 % (0-2.0); EOS % 5.9 % (0-4.5); HEMATOCRIT 34.5 % (35.4-49); HEMOGLOBIN 10.8 GM/dL (11.7-16.9); LYMPH % 12.4 % (8-40); MCHC 31.4 g/dl (32.0-35.9); MEAN CELL VOLUME 92.3 fl (80-96); MEAN PLT VOLUME 7.8 fl (7.5-11.1); MONO % 15.3 % (3.8-10.2); NEUT % 65.6 % (42.8-82.8); PLATELET COUNT 239 K/MM3 (134-434); RBC 3.74 M/mm3 (4.00-5.60); RDW 16.5 % (11.9-15.9); WHITE BLOOD COUNT 8.2 K/mm3 (4.0-10.0)
[2018-12-01 06:34] LABS: ALK PHOS 84 U/L (45-117); ANION GAP 8 MMOL/L (8-16); BILIRUBIN,TOTAL 0.4 mg/dL (0.2-1); BLOOD UREA NITROGEN 19 mg/dL (7-18); CALCIUM 7.7 mg/dL (8.5-10.1); CHLORIDE 97 mmol/L (98-107); CO2 32 mmol/L (21-32); CREATININE 6.2 mg/dL (0.55-1.3); GLUCOSE,RANDOM 131 mg/dL (74-106); MAGNESIUM 1.6 mg/dL (1.8-2.4); PHOSPHOROUS 4.8 mg/dL (2.5-4.9); POTASSIUM 3.8 mmol/L (3.5-5.1); SGOT/AST 15 U/L (15-37); SGPT/ALT 12 U/L (13-61); SODIUM 136 mmol/L (136-145); TOT PROT 6.6 g/dl (6.4-8.2)
[2018-12-01] MEDS: INSULIN SLIDING SCALE (NOVOLOG) 1 VIAL SQ SCH ×3 (06:38→16:20)
[2018-12-01] MEDS: POLYETHYLENE GLYCOL 3350 119 GM BTL PO SCH ×3 (06:40→22:46)
--- NOTE | 2018-12-01 08:25 | PN ---
Teaching Attending Note Name of Resident: Thee Gastelum ATTENDING PHYSICIAN STATEMENT I saw and evaluated the patient. I reviewed the resident's note and discussed the case with the resident. I agree with the resident's findings and plan as documented. SUBJECTIVE: Patient is feeling better , no further bleed at this time. OBJECTIVE: Vital Signs Temperature 99.2 F 12/01/18 06:00 Pulse Rate 88 12/01/18 07:00 Respiratory Rate 16 12/01/18 07:00 Blood Pressure 174/73 H 12/01/18 07:00 O2 Sat by Pulse Oximetry (%) 98 11/30/18 21:00 GENERAL: Awake, alert, and fully oriented, in no acute distress. HEAD: Normal with no signs of trauma. EYES: Pupils equal, round and reactive to light, extraocular movements intact, sclera anicteric, conjunctiva clear. EARS, NOSE, THROAT: Oropharynx clear without exudates. Moist mucous membranes. NECK: Supple without lymphadenopathy. LUNGS: Breath sounds equal, clear to auscultation bilaterally. No wheezes, and no crackles. No accessory muscle use. HEART: Regular rate and rhythm, normal S1 and S2 without murmur, rub or gallop. ABDOMEN: Soft, Non tender, not distended. No guarding, no rebound tenderness, No hepatomegaly or splenomegaly appreciated. EXTREMITIES: 2+ radial pulses b/l. Warm, well-perfused. No peripheral edema. Left upper extremity AV fistula with palpable thrill. NEUROLOGICAL: Cranial nerves II-XII intact. No gross focal deficits. PSYCHIATRIC: Cooperative. Good eye contact. Appropriate mood and affect. SKIN: Warm, dry. CBCD WBC 8.2 K/mm3 (4.0-10.0) 12/01/18 05:15 RBC 3.74 M/mm3 (4.00-5.60) L 12/01/18 05:15 Hgb 10.8 GM/dL (11.7-16.9) L 12/01/18 05:15 Hct 34.5 % (35.4-49) L 12/01/18 05:15 MCV 92.3 fl (80-96) 12/01/18 05:15 MCHC 31.4 g/dl (32.0-35.9) L 12/01/18 05:15 RDW 16.5 % (11.9-15.9) H 12/01/18 05:15 Plt Count 239 K/MM3 (134-434) 12/01/18 05:15 MPV 7.8 fl (7.5-11.1) 12/01/18 05:15 CMP Sodium 136 mmol/L (136-145) 12/01/18 05:15 Potassium 3.8 mmol/L (3.5-5.1) 12/01/18 05:15 Chloride 97 mmol/L (98-107) L 12/01/18 05:15 Carbon Dioxide 32 mmol/L (21-32) 12/01/18 05:15 Anion Gap 8 MMOL/L (8-16) 12/01/18 05:15 BUN 19 mg/dL (7-18) H 12/01/18 05:15 Creatinine 6.2 mg/dL (0.55-1.3) H 12/01/18 05:15 Creat Clearance w eGFR 9.41 (>60) 12/01/18 05:15 Random Glucose 131 mg/dL (74-106) H 12/01/18 05:15 Calcium 7.7 mg/dL (8.5-10.1) L 12/01/18 05:15 Total Bilirubin 0.4 mg/dL (0.2-1) 12/01/18 05:15 AST 15 U/L (15-37) 12/01/18 05:15 ALT 12 U/L (13-61) L 12/01/18 05:15 Alkaline Phosphatase 84 U/L (45-117) 12/01/18 05:15 Total Protein 6.6 g/dl (6.4-8.2) 12/01/18 05:15 Albumin 3.0 g/dl (3.4-5.0) L 12/01/18 05:15 CARDIAC ENZYMES Troponin I 0.05 ng/ml (0.00-0.05) 11/27/18 17:15 Current Medications Generic Name Dose Route Start Last Admin Trade Name Freq PRN Reason Stop Dose Admin Chlorhexidine Gluconate 1 applic 11/28/18 22:00 11/30/18 22:26 Hibiclens For Decolonization - TP 1 applic HS [facility] Administration Hydralazine HCl 10 mg 11/28/18 19:15 12/01/18 05:23 Apresoline Injection - IVPUSH 10 mg Q6H PRN Administration HYPERTENSION Levofloxacin 500 mg in 100 mls @ 100 mls/hr 11/29/18 08:00 12/01/18 08:08 Levaquin 500 Mg Premixed Ivpb - IVPB 100 mls/hr DAILY@0800 [facility] Administration Protocol Insulin Aspart 1 vial 11/30/18 07:00 12/01/18 06:38 Novolog Vial Sliding Scale - SQ Not Given TIDAC [facility] Protocol Metoclopramide HCl 10 mg 11/28/18 13:33 Reglan Injection - IVPUSH Q6H PRN NAUSEA AND/OR VOMITING Metoprolol Succinate 100 mg 11/29/18 19:00 11/30/18 18:18 Toprol Xl - PO 100 mg 1900 [facility] Administration Mupirocin 1 applic 11/28/18 22:00 11/30/18 22:26 Bactroban Ointment (For Decolonization) - NS 12/03/18 21:59 1 applic BID [facility] Administration Nifedipine 60 mg 11/28/18 12:00 11/30/18 12:59 Procardia Xl - PO Not Given DAILY [facility] Pantoprazole Sodium 40 mg 11/29/18 11:45 11/30/18 21:31 Protonix - PO 40 mg BID [facility] Administration Polyethylene Glycol 17 gm 11/29/18 14:00 12/01/18 06:40 Miralax (For Daily Use) - PO 17 grams TID [facility] Administration Home Medications Medication Instructions Recorded Metoprolol Succinate [Toprol XL -] 100 mg PO DAILY@1900 #0 tab.sr.24h 03/01/16 Hydralazine HCl 50 mg PO BID 11/27/18 Nifedipine [Procardia Xl] 60 mg PO BID 11/27/18 ASSESSMENT AND PLAN: Patient is a 58 year old male with history of hypertension, diabetes mellitus, ESRD on HD Fri/Fri/ Fri, presents with complaint of coffee ground emesis. #Acute GI bleed , stable at this time, CT reviewed. s/p EGD showed esophagitis witin mid-and lower third esophagus. Mild gastritis gastric antrum. On Protonix continue. Gi consult appreciated . continue to monitor, added sucralafate. #ESRD: on HD Fri/ Fri/ Fri, jason Ramey #Hypertension: continue Metoprolol 100mg PO daily, Nifedipine 60mg PO daily #Hyponatremia, Hyperkalemia: Resolved. # T2DM on Insulin sliding scale ACHS, with BGM ACHS Prophylaxis:SCDs b/l lower extremities
[2018-12-01] MEDS: NIFEdipine E.R 60 MG TABLET (UD) PO SCH (09:04)
[2018-12-01] MEDS: PANTOPRAZOLE 40 MG TABLET (FP) PO SCH ×2 (09:04→22:48)
[2018-12-01] MEDS: MUPIROCIN 2% TOPICAL OINTMENT FOR DECOLONIZATION NS SCH (09:04)
[2018-12-01] MEDS ORDERED: NIFEdipine E.R 60 MG TABLET (UD) PO SCH (10:18)
--- NOTE | 2018-12-01 10:20 | PN ---
Physical Exam: SUBJECTIVE: Patient seen and examined at bedside this morning. Tolerating clear liquid diet without abdominal pain, nausea, vomiting. Endorses "gassy" epigastric discomfort that is palliated with belching or passing gas. He endorsed one formed bowel movement yesterday, without melena or hematochezia. Patient denies episodes of coffee-ground emesis since hospital admission. OBJECTIVE: Vital Signs Period Temp Pulse Resp BP Sys/Glasgow Pulse Ox Last 24 Hr 98 F-99.2 F 73-93 12-18 133-199/58-84 94-99 GENERAL: Awake, alert, and fully oriented, in no acute distress. HEAD: Normal with no signs of trauma. EYES: Pupils equal, round and reactive to light, extraocular movements intact, sclera anicteric, conjunctiva clear. EARS, NOSE, THROAT: Oropharynx clear without exudates. Moist mucous membranes. NECK: Supple without lymphadenopathy. LUNGS: Breath sounds equal, clear to auscultation bilaterally. No wheezes, and no crackles. No accessory muscle use. HEART: Regular rate and rhythm, normal S1 and S2 without murmur, rub or gallop. ABDOMEN: Soft, tender to deep palpation within epigastrum, not distended. Normoactive bowel sounds X4 quadrants. No guarding, no rebound tenderness, No hepatomegaly or splenomegaly palpated or percussed. MUSCULOSKELETAL: Normal range of motion at all joints. No bony deformities or tenderness. Strength 5/5 b/l upper and lower extremities. UPPER EXTREMITIES: 2+ radial pulses b/l. Warm, well-perfused. No cyanosis. No clubbing. No peripheral edema. Left upper extremity AV fistula with palpable thrill. LOWER EXTREMITIES: 2+ dorsalis pedis pulses b/l. Warm, well-perfused. No calf tenderness. No peripheral edema b/l lower extremities. NEUROLOGICAL: Cranial nerves II-XII intact. No gross focal deficits. PSYCHIATRIC: Cooperative. Good eye contact. Appropriate mood and affect. SKIN: Warm, dry. Laboratory Results - last 24 hr 11/30/18 12/01/18 12/01/18 17:38 05:15 05:15 WBC 8.2 RBC 3.74 L Hgb 10.8 L Hct 34.5 L MCV 92.3 MCH 29.0 MCHC 31.4 L RDW 16.5 H Plt Count 239 MPV 7.8 Absolute Neuts (auto) 5.4 Neutrophils % 65.6 Lymphocytes % 12.4 Monocytes % 15.3 H Eosinophils % 5.9 H Basophils % 0.8 Nucleated RBC % 0 Sodium 136 Potassium 3.8 Chloride 97 L Carbon Dioxide 32 Anion Gap 8 BUN 19 H Creatinine 6.2 H Creat Clearance w eGFR 9.41 POC Glucometer [phone] Random Glucose 131 H Calcium 7.7 L Phosphorus 4.8 Magnesium 1.6 L Total Bilirubin 0.4 AST 15 ALT 12 L Alkaline Phosphatase 84 Total Protein 6.6 Albumin 3.0 L Hep C Ab Diagnostic Active Medications Generic Name Dose Route Start Last Admin Trade Name Freq PRN Reason Stop Dose Admin Chlorhexidine Gluconate 1 applic 11/28/18 22:00 11/30/18 22:26 Hibiclens For Decolonization - TP 1 applic HS [facility] Administration Hydralazine HCl 10 mg 11/28/18 19:15 12/01/18 05:23 Apresoline Injection - IVPUSH 10 mg Q6H PRN Administration HYPERTENSION Levofloxacin 500 mg in 100 mls @ 100 mls/hr 11/29/18 08:00 12/01/18 08:08 Levaquin 500 Mg Premixed Ivpb - IVPB 100 mls/hr DAILY@0800 [facility] Administration Protocol Insulin Aspart 1 vial 11/30/18 07:00 12/01/18 06:38 Novolog Vial Sliding Scale - SQ Not Given TIDAC [facility] Protocol Metoclopramide HCl 10 mg 11/28/18 13:33 Reglan Injection - IVPUSH Q6H PRN NAUSEA AND/OR VOMITING Metoprolol Succinate 100 mg 11/29/18 19:00 11/30/18 18:18 Toprol Xl - PO 100 mg 1900 [facility] Administration Mupirocin 1 applic 11/28/18 22:00 12/01/18 09:04 Bactroban Ointment (For Decolonization) - NS 12/03/18 21:59 1 applic BID [facility] Administration Nifedipine 60 mg 11/28/18 12:00 12/01/18 09:04 Procardia Xl - PO 60 mg DAILY [facility] Administration Pantoprazole Sodium 40 mg 11/29/18 11:45 12/01/18 09:04 Protonix - PO 40 mg BID [facility] Administration Polyethylene Glycol 17 gm 11/29/18 14:00 01/01/19 06:40 Miralax (For Daily Use) - PO 17 grams TID [facility] Administration ASSESSMENT/PLAN: Patient is a 58 year old male with history of hypertension, diabetes mellitus, ESRD on HD Fri/Fri/ Fri, presents with complaint of coffee ground emesis. Coffee ground emesis -CT scan shows concentric thoracic esophageal wall thickening suggestive of esophagitis. Eosinophils not elevated. -Boerhaave syndrome ruled out with CT chest. -Endoscopy shows esophagitis within mid, and lower third esophagus. Mild gastritis gastruc antrum. -No episodes of emesis since hospital admission. -Protonix drip changed to 40mg PO BID -Head of bed elevated for 8 hours/ day -GI consult (Dr. Vidales, Dr. Cheng) appreciated. -Sucralfate 1 gram PO BID -Follow vital signs, and Hb/ Hct closely. ESRD -Patient is on HD Fri/ Fri/ Fri -Nephrology consult (Dr. Ramey) appreciated. -Last HD yesterday. 1kg removed. Tolerated well. Hypertension -Metoprolol 100mg PO daily -Nifedipine increased to 90mg PO daily -Hydralazine 10mg IV Q6H PRN Hyponatremia, Hyperkalemia -Resolved. -Follow CMP closely Diabetes mellitus -Insulin sliding scale ACHS -BGM ACHS FEN -No IV fluids. -Follow CMP closely -Clear liquid diet. Prophylaxis -SCDs b/l lower extremities Disposition -Patient for transfer to medical-surgical floor. Visit type - Emergency Visit Emergency Visit: Yes ED Registration Date: 11/27/18 Care time: The patient presented to the Emergency Department on the above date and was hospitalized for further evaluation of their emergent condition. - New Patient This patient is new to me today: No - Critical Care Critical Care patient: Yes Total Critical Care Time (in minutes): 35 Critical Care Statement: The care of this patient involved high complexity decision making to prevent further life threatening deterioration of the patient 's condition and/or to evaluate & treat vital organ system(s) failure or risk of failure. - Discharge Referral Referred to [facility] Med P.C.: No
[2018-12-01] MEDS ORDERED: NIFEdipine E.R. 30 MG TABLET (FP) PO ONE (10:25)
--- NOTE | 2018-12-01 10:26 | PN ---
Physical Exam: SUBJECTIVE: Patient seen and examined in ICU. No occult bleeding overnight. Denies CP,COREA, SOB, abdominal pain, nausea or vomiting. OBJECTIVE: Vital Signs Period Temp Pulse Resp BP Sys/Glasgow Pulse Ox Last 24 Hr 98 F-99.2 F 73-93 - 133-199/58-84 94-99 Gen: Awake, alert, A&Ox3 HEENT: NCAT, EOMI PULM: CTAB, breathing comfortably on room air w/ symmetric chest rise CV: RRR, no murmurs appreciated ABD: Mild epigastric TTP w/o rebound or guarding, +BS EXT: AVF with good thrill, no edema Neuro: No focal deficits, speech appropriate Laboratory Results - last 24 hr 11/28/18 11/30/18 11/30/18 16:20 05:12 11:49 WBC RBC Hgb Hct MCV MCH MCHC RDW Plt Count MPV Absolute Neuts (auto) Neutrophils % Lymphocytes % Monocytes % Eosinophils % Basophils % Nucleated RBC % Sodium Potassium Chloride Carbon Dioxide Anion Gap BUN Creatinine Creat Clearance w eGFR POC Glucometer 105.46420 127.36815 Random Glucose Calcium Phosphorus Magnesium Total Bilirubin AST ALT Alkaline Phosphatase Total Protein Albumin Hep C Ab Diagnostic 0.2 11/30/18 12/01/18 12/01/18 17:38 05:15 05:15 WBC 8.2 RBC 3.74 L Hgb 10.8 L Hct 34.5 L MCV 92.3 MCH 29.0 MCHC 31.4 L RDW 16.5 H Plt Count 239 MPV 7.8 Absolute Neuts (auto) 5.4 Neutrophils % 65.6 Lymphocytes % 12.4 Monocytes % 15.3 H Eosinophils % 5.9 H Basophils % 0.8 Nucleated RBC % 0 Sodium 136 Potassium 3.8 Chloride 97 L Carbon Dioxide 32 Anion Gap 8 BUN 19 H Creatinine 6.2 H Creat Clearance w eGFR 9.41 POC Glucometer 173.22363 Random Glucose 131 H Calcium 7.7 L Phosphorus 4.8 Magnesium 1.6 L Total Bilirubin 0.4 AST 15 ALT 12 L Alkaline Phosphatase 84 Total Protein 6.6 Albumin 3.0 L Hep C Ab Diagnostic 12/01/18 06:12 WBC RBC Hgb Hct MCV MCH MCHC RDW Plt Count MPV Absolute Neuts (auto) Neutrophils % Lymphocytes % Monocytes % Eosinophils % Basophils % Nucleated RBC % Sodium Potassium Chloride Carbon Dioxide Anion Gap BUN Creatinine Creat Clearance w eGFR POC Glucometer 150.70559 Random Glucose Calcium Phosphorus Magnesium Total Bilirubin AST ALT Alkaline Phosphatase Total Protein Albumin Hep C Ab Diagnostic Active Medications Generic Name Dose Route Start Last Admin Trade Name Freq PRN Reason Stop Dose Admin Chlorhexidine Gluconate 1 applic 11/28/18 22:00 11/30/18 22:26 Hibiclens For Decolonization - TP 1 applic HS [facility] Administration Hydralazine HCl 10 mg 11/28/18 19:15 12/01/18 05:23 Apresoline Injection - IVPUSH 10 mg Q6H PRN Administration HYPERTENSION Levofloxacin 500 mg in 100 mls @ 100 mls/hr 11/29/18 08:00 12/01/18 08:08 Levaquin 500 Mg Premixed Ivpb - IVPB 100 mls/hr DAILY@0800 [facility] Administration Protocol Insulin Aspart 1 vial 11/30/18 07:00 12/01/18 06:38 Novolog Vial Sliding Scale - SQ Not Given TIDAC [facility] Protocol Metoclopramide HCl 10 mg 11/28/18 13:33 Reglan Injection - IVPUSH Q6H PRN NAUSEA AND/OR VOMITING Metoprolol Succinate 100 mg 11/29/18 19:00 11/30/18 18:18 Toprol Xl - PO 100 mg 1900 [facility] Administration Mupirocin 1 applic 11/28/18 22:00 12/01/18 09:04 Bactroban Ointment (For Decolonization) - NS 12/03/18 21:59 1 applic BID [facility] Administration Nifedipine 90 mg 12/02/18 10:00 Procardia Xl - PO DAILY [facility] Nifedipine 30 mg 12/01/18 10:25 Procardia Xl - PO 12/01/18 10:26 ONCE ONE Pantoprazole Sodium 40 mg 11/29/18 11:45 12/01/18 09:04 Protonix - PO 40 mg BID [facility] Administration Polyethylene Glycol 17 gm 11/29/18 14:00 12/01/18 06:40 Miralax (For Daily Use) - PO 17 grams TID [facility] Administration ASSESSMENT/PLAN: The patient is a 58M w/ a history of ESRD (iHD) who presented with one episode of possible coffee ground emesis and was found to have severe esophagitis on CT. Neuro Denies pain CV HTN -Cont home medication Pulm Breathing comfortably on RA, CTM GI Possible upper GI bleed Esophagitis -GI consulted -H/H stable -EGD planned for today -No evidence of perforation on imaging -Protonix IV ESRD -iHD Heme Hgb 9.9, stable, CTM -No indication for transfusion at this time ID Abx per ID -Levaquin Endo T2DM -ISS, BGM Dispo: Patient does not require ICU level of care, will transfer to floor today Visit type - Emergency Visit Emergency Visit: Yes ED Registration Date: 11/27/18 Care time: The patient presented to the Emergency Department on the above date and was hospitalized for further evaluation of their emergent condition. - New Patient This patient is new to me today: Yes Date on this admission: 12/01/18 - Critical Care Critical Care patient: Yes Total Critical Care Time (in minutes): 33 Critical Care Statement: The care of this patient involved high complexity decision making to prevent further life threatening deterioration of the patient 's condition and/or to evaluate & treat vital organ system(s) failure or risk of failure.
--- NOTE | 2018-12-01 10:37 | PN ---
Teaching Attending Note Name of Resident: Geovanny Jean-Baptiste ATTENDING PHYSICIAN STATEMENT I saw and evaluated the patient. I reviewed the resident's note and discussed the case with the resident. I agree with the resident's findings and plan as documented. SUBJECTIVE: Patient seen and examined in ICU. No occult bleeding overnight. (Report from Endoscopic evaluation noted seen) Reports feeling gas after liquid intake. No CP or SOB. Intake & Output 11/28/18 11/29/18 11/30/18 12/01/18 23:59 23:59 23:59 23:59 Intake Total 100 680 750 150 Balance 100 680 750 150 Weight 161 lb Last Vital Signs Temp Pulse Resp BP Pulse Ox 99.2 F 84 16 189/84 H 99 12/01/18 06:00 12/01/18 09:00 12/01/18 09:00 12/01/18 10:04 12/01/18 09:00 Active Medications Chlorhexidine Gluconate (Hibiclens For Decolonization -) 1 applic TP HS [facility] Last Admin: 11/30/18 22:26 Dose: 1 applic Hydralazine HCl (Apresoline Injection -) 10 mg IVPUSH Q6H PRN PRN Reason: HYPERTENSION Last Admin: 12/01/18 05:23 Dose: 10 mg Levofloxacin (Levaquin 500 Mg Premixed Ivpb -) 500 mg in 100 mls @ 100 mls/hr IVPB DAILY@0800 [facility]; Protocol Last Admin: 12/01/18 08:08 Dose: 100 mls/hr Insulin Aspart (Novolog Vial Sliding Scale -) 1 vial SQ TIDAC [facility]; Protocol Last Admin: 12/01/18 06:38 Dose: Not Given Metoclopramide HCl (Reglan Injection -) 10 mg IVPUSH Q6H PRN PRN Reason: NAUSEA AND/OR VOMITING Metoprolol Succinate (Toprol Xl -) 100 mg PO 1900 [facility] Last Admin: 11/30/18 18:18 Dose: 100 mg Mupirocin (Bactroban Ointment (For Decolonization) -) 1 applic NS BID [facility] Stop: 12/03/18 21:59 Last Admin: 12/01/18 09:04 Dose: 1 applic Nifedipine (Procardia Xl -) 90 mg PO DAILY [facility] Pantoprazole Sodium (Protonix -) 40 mg PO BID [facility] Last Admin: 12/01/18 09:04 Dose: 40 mg Polyethylene Glycol (Miralax (For Daily Use) -) 17 gm PO TID [facility] Last Admin: 12/01/18 06:40 Dose: 17 grams PE: Gen: Awake and alert, NAD HEENT: NCAT, EOMI PULM: clear bilaterally CV: RRR, no m/r/g appreciated ABD: Mild tenderness to palpation, (+) BS, no rebound EXT: AVF with good thrill, no edema Neuro: no focal Laboratory Results - last 24 hr 11/28/18 11/30/18 11/30/18 16:20 05:12 11:49 WBC RBC Hgb Hct MCV MCH MCHC RDW Plt Count MPV Absolute Neuts (auto) Neutrophils % Lymphocytes % Monocytes % Eosinophils % Basophils % Nucleated RBC % Sodium Potassium Chloride Carbon Dioxide Anion Gap BUN Creatinine Creat Clearance w eGFR POC Glucometer 105.91283 127.17502 Random Glucose Calcium Phosphorus Magnesium Total Bilirubin AST ALT Alkaline Phosphatase Total Protein Albumin Hep C Ab Diagnostic 0.2 11/30/18 12/01/18 12/01/18 17:38 05:15 05:15 WBC 8.2 RBC 3.74 L Hgb 10.8 L Hct 34.5 L MCV 92.3 MCH 29.0 MCHC 31.4 L RDW 16.5 H Plt Count 239 MPV 7.8 Absolute Neuts (auto) 5.4 Neutrophils % 65.6 Lymphocytes % 12.4 Monocytes % 15.3 H Eosinophils % 5.9 H Basophils % 0.8 Nucleated RBC % 0 Sodium 136 Potassium 3.8 Chloride 97 L Carbon Dioxide 32 Anion Gap 8 BUN 19 H Creatinine 6.2 H Creat Clearance w eGFR 9.41 POC Glucometer 173.49463 Random Glucose 131 H Calcium 7.7 L Phosphorus 4.8 Magnesium 1.6 L Total Bilirubin 0.4 AST 15 ALT 12 L Alkaline Phosphatase 84 Total Protein 6.6 Albumin 3.0 L Hep C Ab Diagnostic 12/01/18 06:12 WBC RBC Hgb Hct MCV MCH MCHC RDW Plt Count MPV Absolute Neuts (auto) Neutrophils % Lymphocytes % Monocytes % Eosinophils % Basophils % Nucleated RBC % Sodium Potassium Chloride Carbon Dioxide Anion Gap BUN Creatinine Creat Clearance w eGFR POC Glucometer [phone] Random Glucose Calcium Phosphorus Magnesium Total Bilirubin AST ALT Alkaline Phosphatase Total Protein Albumin Hep C Ab Diagnostic IMP: Acute GI Bleed ESRD on HD Coffee ground emesis Severe esophagitis on CT PLAN: Need to obtain GI reports Normal transfusion thresholds O2 as needed PO as per GI HD per Renal PPI Floor Dr Otero
--- NOTE | 2018-12-01 13:22 | PN ---
Progress Note, Physician History of Present Illness: Pt seen and examined at bedside. He is awake and alert. He denies shortness of breath. - Current Medication List Current Medications: Active Medications Chlorhexidine Gluconate (Hibiclens For Decolonization -) 1 applic TP HS [facility] Last Admin: 11/30/18 22:26 Dose: 1 applic Hydralazine HCl (Apresoline Injection -) 10 mg IVPUSH Q6H PRN PRN Reason: HYPERTENSION Last Admin: 12/01/18 05:23 Dose: 10 mg Levofloxacin (Levaquin 500 Mg Premixed Ivpb -) 500 mg in 100 mls @ 100 mls/hr IVPB DAILY@0800 [facility]; Protocol Last Admin: 12/01/18 08:08 Dose: 100 mls/hr Insulin Aspart (Novolog Vial Sliding Scale -) 1 vial SQ TIDAC [facility]; Protocol Last Admin: 12/01/18 12:50 Dose: 2 units Metoclopramide HCl (Reglan Injection -) 10 mg IVPUSH Q6H PRN PRN Reason: NAUSEA AND/OR VOMITING Metoprolol Succinate (Toprol Xl -) 100 mg PO 1900 [facility] Last Admin: 11/30/18 18:18 Dose: 100 mg Mupirocin (Bactroban Ointment (For Decolonization) -) 1 applic NS BID [facility] Stop: 12/03/18 21:59 Last Admin: 12/01/18 09:04 Dose: 1 applic Nifedipine (Procardia Xl -) 90 mg PO DAILY [facility] Pantoprazole Sodium (Protonix -) 40 mg PO BID [facility] Last Admin: 12/01/18 09:04 Dose: 40 mg Polyethylene Glycol (Miralax (For Daily Use) -) 17 gm PO TID [facility] Last Admin: 12/01/18 06:40 Dose: 17 grams - Objective Vital Signs: Vital Signs Temperature 99.2 F 12/01/18 06:00 Pulse Rate 82 12/01/18 12:00 Respiratory Rate 18 12/01/18 12:00 Blood Pressure 159/69 12/01/18 12:00 O2 Sat by Pulse Oximetry (%) 99 12/01/18 09:00 Constitutional: Yes: Calm Eyes: Yes: Conjunctiva Clear HENT: Yes: Atraumatic Cardiovascular: Yes: S1, S2 Respiratory: Yes: CTA Bilaterally Gastrointestinal: Yes: Soft Musculoskeletal: Yes: WNL Edema: No Neurological: Yes: Oriented Psychiatric: Yes: Oriented Labs: CBC, BMP 12/01/18 05:15 12/01/18 05:15 INR, PTT INR 1.03 (0.83-1.09) 11/27/18 11:00 Problem List - Problems (1) ESRD (end stage renal disease) Code(s): N18.6 - END STAGE RENAL DISEASE (2) Dialysis patient Code(s): Z99.2 - DEPENDENCE ON RENAL DIALYSIS (3) Elevated lipase Code(s): R74.8 - ABNORMAL LEVELS OF OTHER SERUM ENZYMES (4) Hyperkalemia Code(s): E87.5 - HYPERKALEMIA Assessment/Plan Current Medications Generic Name Dose Route Start Last Admin Trade Name Freq PRN Reason Stop Dose Admin Chlorhexidine Gluconate 1 applic 11/28/18 22:00 11/30/18 22:26 Hibiclens For Decolonization - TP 1 applic HS [facility] Administration Hydralazine HCl 10 mg 11/28/18 19:15 12/01/18 05:23 Apresoline Injection - IVPUSH 10 mg Q6H PRN Administration HYPERTENSION Levofloxacin 500 mg in 100 mls @ 100 mls/hr 11/29/18 08:00 12/01/18 08:08 Levaquin 500 Mg Premixed Ivpb - IVPB 100 mls/hr DAILY@0800 [facility] Administration Protocol Insulin Aspart 1 vial 11/30/18 07:00 12/01/18 12:50 Novolog Vial Sliding Scale - SQ 2 units TIDAC [facility] Administration Protocol Metoclopramide HCl 10 mg 11/28/18 13:33 Reglan Injection - IVPUSH Q6H PRN NAUSEA AND/OR VOMITING Metoprolol Succinate 100 mg 11/29/18 19:00 11/30/18 18:18 Toprol Xl - PO 100 mg 1900 [facility] Administration Mupirocin 1 applic 11/28/18 22:00 12/01/18 09:04 Bactroban Ointment (For Decolonization) - NS 12/03/18 21:59 1 applic BID [facility] Administration Nifedipine 90 mg 12/02/18 10:00 Procardia Xl - PO DAILY [facility] Pantoprazole Sodium 40 mg 11/29/18 11:45 12/01/18 09:04 Protonix - PO 40 mg BID [facility] Administration Polyethylene Glycol 17 gm 11/29/18 14:00 12/01/18 06:40 Miralax (For Daily Use) - PO 17 grams TID [facility] Administration Impression 1. ESRD 2. abdominal pain 3. nausea and vomiting 4. HTN 5. anemia 6. hyperkalemia Plan - HD tomorrow - increase nifedipine - add hydralazine - monitor bp - monitor hg - will follow Dr Ramey
--- NOTE | 2018-12-01 14:28 | PN ---
GI Progress Note Subjective: S/P EGD yesterday: mild mid esophagitis, moderate to severe distal esophagitis and mid gastritis noted. COmplains of burning in the lower chest upon attempting to swallow regular food this afternoon No abdominal pain. States feeling cold and tremoring during exam. Cousin present at bedside - Objective Vital Signs: Vital Signs Temperature 99.2 F 12/01/18 06:00 Pulse Rate 82 12/01/18 12:00 Respiratory Rate 18 12/01/18 12:00 Blood Pressure 159/69 12/01/18 12:00 O2 Sat by Pulse Oximetry (%) 99 12/01/18 09:00 Constitutional: Calm Eyes: No: Sclera Icterus Cardiovascular: Yes: Regular Rate and Rhythm Respiratory: Yes: CTA Bilaterally Gastrointestinal Inspection: No: Distention ...Auscultate: Yes: Normoactive Bowel Sounds ...Palpate: No: Hepatomegaly, Splenomegaly, Tenderness ...Percussion: No: Tympanitic Edema: No (No LE edema) Neurological: Yes: Alert Labs: CBC, BMP 12/01/18 05:15 12/01/18 05:15 INR, PTT INR 1.03 (0.83-1.09) 11/27/18 11:00 Problem List - Problems (1) Esophagitis Assessment/Plan: Continue Protonix 40mg BID Gave dose of sucralfate today Stopped reglan. ? if contributing to tremors Change to clear liquid diet No need for Abx from a GI standpoint Code(s): K20.9 - ESOPHAGITIS, UNSPECIFIED
[2018-12-01] MEDS ORDERED: hydrALAZINE HCL 20 MG/ML VIAL IVPUSH PRN ×2 (17:34→18:31)
[2018-12-01] MEDS: hydrALAZINE HCL 10 MG TABLET PO SCH ×2 (19:14→23:25)
[2018-12-01] MEDS ORDERED: CHLORHEXIDINE GLUCONATE 4% CLEANSER FOR DECOLONIZATION TP SCH (22:00)
[2018-12-01] MEDS ORDERED: MUPIROCIN 2% TOPICAL OINTMENT FOR DECOLONIZATION NS SCH (22:00)
[2018-12-01] MEDS: SUCRALFATE 1 GM/10 ML UNIT DOSE CUPS PO SCH (22:48)
[2018-12-02] MEDS: POLYETHYLENE GLYCOL 3350 119 GM BTL PO SCH ×3 (06:20→21:50)
[2018-12-02] MEDS: hydrALAZINE HCL 10 MG TABLET PO SCH ×2 (06:21→12:43)
[2018-12-02] MEDS: INSULIN SLIDING SCALE (NOVOLOG) 1 VIAL SQ SCH ×3 (06:21→16:45)
[2018-12-02 06:31] LABS: HEMATOCRIT 32.6 % (35.4-49); HEMOGLOBIN 10.5 GM/dL (11.7-16.9); MCH 29.5 pg (25.7-33.7); MCHC 32.3 g/dl (32.0-35.9); MEAN CELL VOLUME 91.5 fl (80-96); MEAN PLT VOLUME 7.8 fl (7.5-11.1); PLATELET COUNT 247 K/MM3 (134-434); RBC 3.57 M/mm3 (4.00-5.60); RDW 16.3 % (11.9-15.9); WHITE BLOOD COUNT 9.3 K/mm3 (4.0-10.0)
[2018-12-02 07:23] LABS: ALK PHOS 81 U/L (45-117); ANION GAP 10 MMOL/L (8-16); BILIRUBIN,TOTAL 0.5 mg/dL (0.2-1); BLOOD UREA NITROGEN 30 mg/dL (7-18); CALCIUM 7.9 mg/dL (8.5-10.1); CHLORIDE 96 mmol/L (98-107); CO2 30 mmol/L (21-32); GLUCOSE,RANDOM 108 mg/dL (74-106); MAGNESIUM 1.9 mg/dL (1.8-2.4); PHOSPHOROUS 5.4 mg/dL (2.5-4.9); POTASSIUM 4.1 mmol/L (3.5-5.1); SGOT/AST 15 U/L (15-37); SGPT/ALT 13 U/L (13-61); SODIUM 135 mmol/L (136-145); TOT PROT 6.4 g/dl (6.4-8.2)
[2018-12-02 07:41] LABS: CREATININE 8.9 mg/dL (0.55-1.3)
[2018-12-02] MEDS ORDERED: NIFEdipine E.R. 90 MG TABLET (FP) PO SCH (10:00)
[2018-12-02] MEDS: SUCRALFATE 1 GM/10 ML UNIT DOSE CUPS PO SCH ×2 (10:52→21:50)
[2018-12-02] MEDS: PANTOPRAZOLE 40 MG TABLET (FP) PO SCH (10:53)
[2018-12-02] MEDS ORDERED: PT OWN MED DRAWER 7, Y5N ONE ×2 (11:54→20:09)
--- NOTE | 2018-12-02 12:19 | PN ---
Progress Note, Physician History of Present Illness: Pt seen and examined at bedside. He is awake and alert. He denies shortness of breath. - Current Medication List Current Medications: Active Medications Hydralazine HCl (Apresoline -) 10 mg PO Q6HPO [facility] Last Admin: 12/02/18 06:21 Dose: 10 mg Insulin Aspart (Novolog Vial Sliding Scale -) 1 vial SQ TIDAC [facility]; Protocol Last Admin: 12/02/18 11:40 Dose: 2 units Metoprolol Succinate (Toprol Xl -) 100 mg PO DAILY@1900 [facility] Last Admin: 12/01/18 19:14 Dose: 100 mg Nifedipine (Procardia Xl -) 90 mg PO DAILY [facility] Last Admin: 12/02/18 10:52 Dose: 90 mg Pantoprazole Sodium (Protonix -) 40 mg PO BID [facility] Last Admin: 12/02/18 10:53 Dose: 40 mg Polyethylene Glycol (Miralax (For Daily Use) -) 17 gm PO TID [facility] Last Admin: 12/02/18 06:20 Dose: 17 gm - Objective Vital Signs: Vital Signs Temperature 98.8 F 12/02/18 10:00 Pulse Rate 84 12/02/18 10:00 Respiratory Rate 18 12/02/18 10:00 Blood Pressure 198/99 H 12/02/18 10:00 O2 Sat by Pulse Oximetry (%) 97 12/02/18 09:00 Constitutional: Yes: Calm Eyes: Yes: Conjunctiva Clear HENT: Yes: Atraumatic Neck: Yes: Supple Cardiovascular: Yes: S1, S2 Respiratory: Yes: CTA Bilaterally Gastrointestinal: Yes: Normal Bowel Sounds, Soft Genitourinary: Yes: WNL Musculoskeletal: Yes: WNL Edema: No Neurological: Yes: Oriented Psychiatric: Yes: Oriented Labs: CBC, BMP 12/02/18 05:35 12/02/18 05:35 INR, PTT INR 1.03 (0.83-1.09) 11/27/18 11:00 Problem List - Problems (1) ESRD (end stage renal disease) Code(s): N18.6 - END STAGE RENAL DISEASE (2) Dialysis patient Code(s): Z99.2 - DEPENDENCE ON RENAL DIALYSIS (3) Elevated lipase Code(s): R74.8 - ABNORMAL LEVELS OF OTHER SERUM ENZYMES (4) Hyperkalemia Code(s): E87.5 - HYPERKALEMIA Assessment/Plan Current Medications Generic Name Dose Route Start Last Admin Trade Name Deonna PRN Reason Stop Dose Admin Hydralazine HCl 10 mg 12/01/18 19:15 12/02/18 06:21 Apresoline - PO 10 mg Q6HPO ELIZA Administration Insulin Aspart 1 vial 11/30/18 07:00 12/02/18 11:40 Novolog Vial Sliding Scale - SQ 2 units TIDAC ELIZA Administration Protocol Metoprolol Succinate 100 mg 12/01/18 19:00 12/01/18 19:14 Toprol Xl - PO 100 mg DAILY@1900 ELIZA Administration Nifedipine 90 mg 12/02/18 10:00 12/02/18 10:52 Procardia Xl - PO 90 mg DAILY ELIZA Administration Pantoprazole Sodium 40 mg 12/01/18 22:00 12/02/18 10:53 Protonix - PO 40 mg BID ELIZA Administration Polyethylene Glycol 17 gm 12/01/18 22:00 12/02/18 06:20 Miralax (For Daily Use) - PO 17 gm TID ELIZA Administration Impression 1. ESRD 2. abdominal pain 3. nausea and vomiting 4. HTN 5. anemia 6. hyperkalemia 7. esophagitis Plan - pt off HD schedule, will arrange for HD tomorrow - GI follow up - follow biopsy - increase hydralazine dose - repeat bp after am meds - monitor bp - monitor hg - will follow Dr Ramey
--- NOTE | 2018-12-02 13:14 | PATH ---
Surgical Pathology Report Patient Name: KYLEE RODRIGUEZ Med. Rec. #: [id number] /Age/Gender: 1960 (Age: 58) / M Account: [id number] Location: [address] [place] [address]/[facility] Taken: 11/30/2018 Received: 11/30/2018 Reported: 12/02/2018 Physicians: MD Zuri Ornelas MD Specimen(s) Received A: BX ANTRUM B: BX DISTAL ESOPHAGUS Clinical History Dysphagia Postoperative diagnosis: Gastritis, abnormal GE junction Final Diagnosis A. STOMACH, ANTRUM, BIOPSY: GASTRIC ANTRAL MUCOSA WITH MILD CHRONIC GASTRITIS. IMMUNOHISTOCHEMICAL STAIN FOR H. PYLORI IS NEGATIVE. B. DISTAL ESOPHAGUS, GE JUNCTION, BIOPSY: SQUAMOCOLUMNAR MUCOSA WITH MODERATE BASAL CELL HYPERPLASIA AND MARKED ACUTE ESOPHAGITIS, ASSOCIATED ULCERATION, AND REACTIVE CHANGES. NO INTESTINAL METAPLASIA OR DYSPLASIA IDENTIFIED. RARE FUNGAL FORMS HIGHLIGHTED BY PAS SPECIAL STAIN. Electronically Signed Catherine Simon M.D. Gross Description A. Received in formalin, labeled "biopsy antrum" are 2 laurent, irregular portions of soft tissue measuring 0.1 and 0.4 cm. in greatest dimension. The specimens are submitted in toto in one cassette. B. Received in formalin, labeled "biopsy distal esophagus GE junction" are 5 laurent, irregular portions of soft tissue ranging from 0.3-0.5 cm. in greatest dimension. The specimens are submitted in toto in one cassette. DL/11/30/2018 saudi11/30/2018
[2018-12-02] MEDS ORDERED: hydrALAZINE HCL 25 MG TABLET (FP) PO SCH (14:00)
[2018-12-02] MEDS ORDERED: hydrALAZINE HCL 50 MG TABLET (FP) PO STA (14:26)
[2018-12-02] MEDS ORDERED: MAG HYDROX/AL HYDROX/SIMETH 30 ML UNIT-DOSE CUP PO PRN (15:17)
--- NOTE | 2018-12-02 15:17 | PN ---
Teaching Attending Note Name of Resident: Thee Gastelum ATTENDING PHYSICIAN STATEMENT I saw and evaluated the patient. I reviewed the resident's note and discussed the case with the resident. I agree with the resident's findings and plan as documented. SUBJECTIVE: Feels well - no abdominal pain. No further vomiting/hematemesis. No melena. OBJECTIVE: Afebrile, Hemodynamically Stable. Last Vital Signs Temp Pulse Resp BP Pulse Ox 98.1 F 80 20 189/95 H 97 12/02/18 14:36 12/02/18 14:36 12/02/18 14:36 12/02/18 14:36 12/02/18 09:00 HEENT - Atraumatic, Normocephalic. Heart - S1, S2, RRR Lungs - clear to auscultation. No crackles/wheeze Abdomen - Soft, non-tender. Bowel Sounds normal. Extremities - no edema, no calf tenderness Laboratory Results - last 24 hr 12/01/18 12/01/18 12/02/18 12:02 16:15 05:35 WBC 9.3 RBC 3.57 L Hgb 10.5 L Hct 32.6 L MCV 91.5 MCH 29.5 MCHC 32.3 RDW 16.3 H Plt Count 247 MPV 7.8 Sodium Potassium Chloride Carbon Dioxide Anion Gap BUN Creatinine Creat Clearance w eGFR POC Glucometer 158.87425 98.00341 Random Glucose Calcium Phosphorus Magnesium Total Bilirubin AST ALT Alkaline Phosphatase Total Protein Albumin 12/02/18 12/02/18 12/02/18 05:35 06:19 11:39 WBC RBC Hgb Hct MCV MCH MCHC RDW Plt Count MPV Sodium 135 L Potassium 4.1 Chloride 96 L Carbon Dioxide 30 Anion Gap 10 BUN 30 H Creatinine 8.9 H* Creat Clearance w eGFR 6.20 POC Glucometer 108 174 Random Glucose 108 H Calcium 7.9 L Phosphorus 5.4 H Magnesium 1.9 Total Bilirubin 0.5 AST 15 ALT 13 Alkaline Phosphatase 81 Total Protein 6.4 Albumin 3.0 L Current Medications Generic Name Dose Route Start Last Admin Trade Name Freq PRN Reason Stop Dose Admin Hydralazine HCl 50 mg 12/02/18 22:00 Apresoline - PO BID ELIZA Insulin Aspart 1 vial 11/30/18 07:00 12/02/18 11:40 Novolog Vial Sliding Scale - SQ 2 units TIDAC ELIZA Administration Protocol Metoprolol Succinate 100 mg 12/01/18 19:00 12/01/18 19:14 Toprol Xl - PO 100 mg DAILY@1900 ELIZA Administration Nifedipine 60 mg 12/02/18 22:00 Procardia Xl - PO BID ELIZA Pantoprazole Sodium 40 mg 12/01/18 22:00 12/02/18 10:53 Protonix - PO 40 mg BID ELIZA Administration Polyethylene Glycol 17 gm 12/01/18 22:00 12/02/18 14:17 Miralax (For Daily Use) - PO Not Given TID [facility] ASSESSMENT AND PLAN: 58 year old male with histry of HTN, DM 2, ESRD on HD (MWF), admitted on with coffee ground emesis. 1. Acute GI bleed, resolved. s/p EGD - esophagitis and gastritis. Continuer Protonix and Sucralfate. Advance diet with Maalox prn for dyspepsia. GI following. 2. ESRD on HD MWF - Nephrology following. 3. Chronic Anemia secondary to ESRD - Nephrologyto determine need for Epo. 4. Hypertension - Metoprolol 100mg PO daily, Nifedipine 60mg PO daily, Hydralazine (dose increased due to uncontrolled HTN) 5. Hyponatremia/ Hyperkalemia - Resolved. 6. DM 2 - Novolog s/scale. DVT Prophylaxis - SCDs b/l lower extremities
--- NOTE | 2018-12-02 18:39 | PN ---
Physical Exam: SUBJECTIVE: Patient seen and examined at bedside. Endorses epigastric discomfort when eating soft foods yesterday, without nausea, or vomiting. Endorses four bowel movements that were liquid, brown, without melena, or hematochezia. Denies fevers, chills, shortness of breath, chest pain, palpitations. OBJECTIVE: Vital Signs Period Temp Pulse Resp BP Sys/Glasgow Pulse Ox Last 24 Hr 98 F-98.8 F 73-84 18-20 143-198/76-99 97-97 GENERAL: Awake, alert, and fully oriented, in no acute distress. HEAD: Normal with no signs of trauma. EYES: Pupils equal, round and reactive to light, extraocular movements intact, sclera anicteric, conjunctiva clear. EARS, NOSE, THROAT: Oropharynx clear without exudates. Moist mucous membranes. NECK: Supple without lymphadenopathy. LUNGS: Breath sounds equal, clear to auscultation bilaterally. No wheezes, and no crackles. No accessory muscle use. HEART: Regular rate and rhythm, normal S1 and S2 without murmur, rub or gallop. ABDOMEN: Soft, tender to deep palpation within epigastrum, not distended. Normoactive bowel sounds X4 quadrants. No guarding, no rebound tenderness, No hepatomegaly or splenomegaly palpated or percussed. MUSCULOSKELETAL: Normal range of motion at all joints. No bony deformities or tenderness. Strength 5/5 b/l upper and lower extremities. UPPER EXTREMITIES: 2+ radial pulses b/l. Warm, well-perfused. No cyanosis. No clubbing. No peripheral edema. Left upper extremity AV fistula with palpable thrill. LOWER EXTREMITIES: 2+ dorsalis pedis pulses b/l. Warm, well-perfused. No calf tenderness. No peripheral edema b/l lower extremities. NEUROLOGICAL: Cranial nerves II-XII intact. No gross focal deficits. PSYCHIATRIC: Cooperative. Good eye contact. Appropriate mood and affect. SKIN: Warm, dry. Laboratory Results - last 24 hr 12/02/18 12/02/18 12/02/18 05:35 05:35 06:19 WBC 9.3 RBC 3.57 L Hgb 10.5 L Hct 32.6 L MCV 91.5 MCH 29.5 MCHC 32.3 RDW 16.3 H Plt Count 247 MPV 7.8 Sodium 135 L Potassium 4.1 Chloride 96 L Carbon Dioxide 30 Anion Gap 10 BUN 30 H Creatinine 8.9 H* Creat Clearance w eGFR 6.20 POC Glucometer 108 Random Glucose 108 H Calcium 7.9 L Phosphorus 5.4 H Magnesium 1.9 Total Bilirubin 0.5 AST 15 ALT 13 Alkaline Phosphatase 81 Total Protein 6.4 Albumin 3.0 L 12/02/18 12/02/18 11:39 16:44 WBC RBC Hgb Hct MCV MCH MCHC RDW Plt Count MPV Sodium Potassium Chloride Carbon Dioxide Anion Gap BUN Creatinine Creat Clearance w eGFR POC Glucometer 174 106 Random Glucose Calcium Phosphorus Magnesium Total Bilirubin AST ALT Alkaline Phosphatase Total Protein Albumin Active Medications Generic Name Dose Route Start Last Admin Trade Name Freq PRN Reason Stop Dose Admin Al Hydroxide/Mg Hydroxide 30 ml 12/02/18 15:17 Mylanta Oral Suspension - PO Q6H PRN DYSPEPSIA Hydralazine HCl 50 mg 12/02/18 22:00 Apresoline - PO BID [facility] Insulin Aspart 1 vial 11/30/18 07:00 12/02/18 16:45 Novolog Vial Sliding Scale - SQ Not Given TIDAC [facility] Protocol Metoprolol Succinate 100 mg 12/01/18 19:00 12/01/18 19:14 Toprol Xl - PO 100 mg DAILY@1900 ELIZA Administration Nifedipine 60 mg 12/02/18 22:00 Procardia Xl - PO BID ELIZA Pantoprazole Sodium 40 mg 12/01/18 22:00 12/02/18 10:53 Protonix - PO 40 mg BID ELIZA Administration Polyethylene Glycol 17 gm 12/01/18 22:00 12/02/18 14:17 Miralax (For Daily Use) - PO Not Given TID [facility] IMAGING: -CT scan shows concentric thoracic esophageal wall thickening suggestive of esophagitis. Eosinophils not elevated. -Boerhaave syndrome ruled out with CT chest. ASSESSMENT/PLAN: Patient is a 58 year old male with history of hypertension, diabetes mellitus, ESRD on HD Mon/Fri/ Fri, presents with complaint of coffee ground emesis. Coffee ground emesis -Endoscopy shows esophagitis within mid, and lower third esophagus. Mild gastritis gastruc antrum. -Pathology negative for H. pylori. Rare fungal forms on PAS stain. No intestinal metaplasia noted. -No episodes of emesis since hospital admission. -Diet at full liquid with renal, sodium modification. Advance with GI recommendation, and as tolerated. -Protonix 40mg PO daily -Sucralfate 1 gram PO BID -GI consult (Dr. Vidales, Dr. Cheng) appreciated. Will consider antifungal if symptoms do not improve. -Follow vital signs, and Hb/ Hct closely. ESRD -Patient is on HD Mon/ Fri/ Fri -Nephrology consult (Dr. Ramey) appreciated. Hypertension -Metoprolol 100mg PO daily -Nifedipine ER 60mg PO BID -Hydralazine 50mg PO BID Hyponatremia, Hyperkalemia -Resolved. -Follow CMP closely Diabetes mellitus -Insulin sliding scale ACHS -BGM ACHS FEN -No IV fluids. -Follow CMP closely -Clear liquid diet. Prophylaxis -SCDs b/l lower extremities Disposition -Continue care in medical-surgical floor. Visit type - Emergency Visit Emergency Visit: Yes ED Registration Date: 11/27/18 Care time: The patient presented to the Emergency Department on the above date and was hospitalized for further evaluation of their emergent condition. - New Patient This patient is new to me today: No - Critical Care Critical Care patient: No - Discharge Referral Referred to [facility] Med P.C.: No
--- NOTE | 2018-12-02 18:40 | PN ---
GI Progress Note Subjective: Tolerating clears but says that the lemon jello burned when he ate it He thinks the Surcralfate helped him Pathology from EGD: H. pylori negative, ulcerated esophageal mucosa and rare fungal forms present on biopsy Constipation improved - Objective Vital Signs: Vital Signs Temperature 98.1 F 12/02/18 14:36 Pulse Rate 80 12/02/18 14:36 Respiratory Rate 20 12/02/18 14:36 Blood Pressure 189/95 H 12/02/18 14:36 O2 Sat by Pulse Oximetry (%) 97 12/02/18 09:00 Constitutional: Calm Eyes: No: Sclera Icterus Cardiovascular: Yes: Regular Rate and Rhythm Respiratory: Yes: CTA Bilaterally Gastrointestinal Inspection: No: Distention ...Auscultate: Yes: Normoactive Bowel Sounds ...Palpate: Yes: Soft. No: Tenderness ...Percussion: No: Tympanitic Edema: No (No LE edema) Neurological: Yes: Alert Labs: CBC, BMP 12/02/18 05:35 12/02/18 05:35 INR, PTT INR 1.03 (0.83-1.09) 11/27/18 11:00 Problem List - Problems (1) Esophagitis Assessment/Plan: Protonix 40mg daily Sucralfate 1g PO BID Advance to full liquids If no continued improvement add antifungal if no contraindications ie. diflucan 100mg PO BID for 14 days Code(s): K20.9 - ESOPHAGITIS, UNSPECIFIED
[2018-12-02] MEDS ORDERED: SODIUM CHLORIDE 250 ML IV PRN (19:26)
[2018-12-02] MEDS: hydrALAZINE HCL 50 MG TABLET (FP) PO SCH (21:50)
[2018-12-02] MEDS: NIFEdipine E.R 60 MG TABLET (UD) PO SCH (21:50)
[2018-12-03] MEDS: INSULIN SLIDING SCALE (NOVOLOG) 1 VIAL SQ SCH ×3 (06:20→17:21)
--- NOTE | 2018-12-03 08:49 | PN ---
Physical Exam: SUBJECTIVE: Patient seen and examined at bedside this morning. He is tolerating full liquid diet, and admits resolution of epigastric burning. Admits one loosely formed bowel movement overnight without melena, or hematochezia. Denies abdominal pain, nausea, vomiting. Denies fevers or chills. OBJECTIVE: Vital Signs Period Temp Pulse Resp BP Sys/Glasgow Pulse Ox Last 24 Hr 98.1 F-99 F 73-84 18-20 139-198/62-99 97-97 GENERAL: Patient is awake, alert, and fully oriented, in no acute distress. HEAD: Normnocephalic, atraumatic. EYES: Pupils equal, round and reactive to light, extraocular movements intact, sclera anicteric, conjunctiva clear. EARS, NOSE, THROAT: Oropharynx clear without exudates, or erythema. Moist mucous membranes. NECK: Supple without lymphadenopathy. LUNGS: Breath sounds equal, clear to auscultation bilaterally. No wheezes, and no crackles. No accessory muscle use. HEART: Regular rate and rhythm, normal S1 and S2 without murmur, rub or gallop. ABDOMEN: Soft, nontender to light and deep palpation X4 quadrants. Normoactive bowel sounds X4 quadrants. No guarding, no rebound tenderness, No hepatomegaly or splenomegaly palpated or percussed. MUSCULOSKELETAL: Normal range of motion at all joints. No bony deformities or tenderness. Strength 5/5 b/l upper and lower extremities. UPPER EXTREMITIES: 2+ radial pulses b/l. Warm, well-perfused. Left upper extremity AV fistula with palpable thrill. LOWER EXTREMITIES: 2+ dorsalis pedis pulses b/l. Warm, well-perfused. No calf tenderness. No peripheral edema b/l lower extremities. NEUROLOGICAL: Cranial nerves II-XII intact. No gross focal deficits. PSYCHIATRIC: Cooperative. Good eye contact. Appropriate mood and affect. SKIN: Warm, dry. Laboratory Results - last 24 hr 12/02/18 12/02/18 12/03/18 11:39 16:44 06:20 POC Glucometer 174 106 93 Active Medications Generic Name Dose Route Start Last Admin Trade Name Freq PRN Reason Stop Dose Admin Hydralazine HCl 50 mg 12/02/18 22:00 12/02/18 21:50 Apresoline - PO 50 mg BID ELIZA Administration Sodium Chloride 250 mls @ 3,000 mls/hr 12/02/18 19:26 Normal Saline - IV 12/03/18 19:26 PRN PRN Hypotension during Dialysis Insulin Aspart 1 vial 11/30/18 07:00 12/03/18 06:20 Novolog Vial Sliding Scale - SQ Not Given TIDAC [facility] Protocol Metoprolol Succinate 100 mg 12/01/18 19:00 12/02/18 18:39 Toprol Xl - PO 100 mg DAILY@1900 ELIZA Administration Nifedipine 60 mg 12/02/18 22:00 12/02/18 21:50 Procardia Xl - PO 60 mg BID [facility] Administration Pantoprazole Sodium 40 mg 12/03/18 10:00 Protonix - PO DAILY [facility] Polyethylene Glycol 17 gm 12/02/18 22:00 12/02/18 21:50 Miralax (For Daily Use) - PO Not Given BID [facility] Sucralfate 1 gm 12/02/18 22:00 12/02/18 21:50 Carafate Oral Suspension - PO 1 gm BID [facility] Administration ASSESSMENT/PLAN:
[2018-12-03 09:18] LABS: HEMATOCRIT 30.5 % (35.4-49); HEMOGLOBIN 10.2 GM/dL (11.7-16.9); MCH 30.5 pg (25.7-33.7); MCHC 33.6 g/dl (32.0-35.9); MEAN CELL VOLUME 90.9 fl (80-96); MEAN PLT VOLUME 7.9 fl (7.5-11.1); PLATELET COUNT 289 K/MM3 (134-434); RBC 3.36 M/mm3 (4.00-5.60); RDW 16.3 % (11.9-15.9); WHITE BLOOD COUNT 8.2 K/mm3 (4.0-10.0)
[2018-12-03] MEDS ORDERED: PANTOPRAZOLE 40 MG TABLET (FP) PO SCH (10:00)
[2018-12-03 10:02] LABS: ALBUMIN 2.9 g/dl (3.4-5.0); ALK PHOS 76 U/L (45-117); ANION GAP 11 MMOL/L (8-16); BILIRUBIN,TOTAL 0.3 mg/dL (0.2-1); BLOOD UREA NITROGEN 39 mg/dL (7-18); CALCIUM 7.9 mg/dL (8.5-10.1); CHLORIDE 94 mmol/L (98-107); CO2 27 mmol/L (21-32); GLUCOSE,RANDOM 131 mg/dL (74-106); SGOT/AST 15 U/L (15-37); SGPT/ALT 11 U/L (13-61); SODIUM 132 mmol/L (136-145); TOT PROT 6.2 g/dl (6.4-8.2)
[2018-12-03 10:38] LABS: CREATININE 11.1 mg/dL (0.55-1.3)
[2018-12-03 12:16] LABS: HBSAG SCREEN Negative (Negative); HEP A AB, IGM Negative (Negative); HEP B CORE AB, TOT Positive (Negative)
[2018-12-03] MEDS: hydrALAZINE HCL 50 MG TABLET (FP) PO SCH (13:48)
[2018-12-03] MEDS: SUCRALFATE 1 GM/10 ML UNIT DOSE CUPS PO SCH (13:48)
[2018-12-03] MEDS: NIFEdipine E.R 60 MG TABLET (UD) PO SCH (13:49)
[2018-12-03] MEDS: POLYETHYLENE GLYCOL 3350 119 GM BTL PO SCH (14:09)
[2018-12-03 14:22] VITALS: PULSE 80
--- NOTE | 2018-12-03 15:25 | PN ---
Progress Note, Physician History of Present Illness: Pt seen and examined at bedside. He is awake and alert. He tolerated HD today. - Current Medication List Current Medications: Active Medications Hydralazine HCl (Apresoline -) 50 mg PO BID [facility] Last Admin: 12/03/18 13:48 Dose: 50 mg Sodium Chloride (Normal Saline -) 250 mls @ 3,000 mls/hr IV PRN PRN PRN Reason: Hypotension during Dialysis Stop: 12/03/18 19:26 Insulin Aspart (Novolog Vial Sliding Scale -) 1 vial SQ TIDAC [facility]; Protocol Last Admin: 12/03/18 14:07 Dose: 2 units Metoprolol Succinate (Toprol Xl -) 100 mg PO DAILY@1900 [facility] Last Admin: 12/02/18 18:39 Dose: 100 mg Nifedipine (Procardia Xl -) 60 mg PO BID [facility] Last Admin: 12/03/18 13:49 Dose: 60 mg Pantoprazole Sodium (Protonix -) 40 mg PO DAILY [facility] Last Admin: 12/03/18 13:49 Dose: 40 mg Polyethylene Glycol (Miralax (For Daily Use) -) 17 gm PO BID [facility] Last Admin: 12/03/18 14:09 Dose: 17 grams Sucralfate (Carafate Oral Suspension -) 1 gm PO BID [facility] Last Admin: 12/03/18 13:48 Dose: 1 gm - Objective Vital Signs: Vital Signs Temperature 98.3 F 12/03/18 12:40 Pulse Rate 80 12/03/18 12:40 Respiratory Rate 18 12/03/18 12:40 Blood Pressure 175/82 H 12/03/18 12:40 O2 Sat by Pulse Oximetry (%) 93 L 12/03/18 09:00 Constitutional: Yes: Calm Eyes: Yes: Conjunctiva Clear HENT: Yes: Atraumatic Cardiovascular: Yes: S1, S2 Respiratory: Yes: CTA Bilaterally Gastrointestinal: Yes: Soft Genitourinary: Yes: WNL Musculoskeletal: Yes: WNL Edema: No Neurological: Yes: Oriented Psychiatric: Yes: Oriented Labs: CBC, BMP 12/03/18 09:00 12/03/18 09:00 INR, PTT INR 1.03 (0.83-1.09) 11/27/18 11:00 Problem List - Problems (1) ESRD (end stage renal disease) Code(s): N18.6 - END STAGE RENAL DISEASE (2) Dialysis patient Code(s): Z99.2 - DEPENDENCE ON RENAL DIALYSIS (3) Elevated lipase Code(s): R74.8 - ABNORMAL LEVELS OF OTHER SERUM ENZYMES (4) Hyperkalemia Code(s): E87.5 - HYPERKALEMIA Assessment/Plan Current Medications Generic Name Dose Route Start Last Admin Trade Name Freq PRN Reason Stop Dose Admin Hydralazine HCl 50 mg 12/02/18 22:00 12/03/18 13:48 Apresoline - PO 50 mg BID ELIZA Administration Sodium Chloride 250 mls @ 3,000 mls/hr 12/02/18 19:26 Normal Saline - IV 12/03/18 19:26 PRN PRN Hypotension during Dialysis Insulin Aspart 1 vial 11/30/18 07:00 12/03/18 14:07 Novolog Vial Sliding Scale - SQ 2 units TIDAC ELIZA Administration Protocol Metoprolol Succinate 100 mg 12/01/18 19:00 12/02/18 18:39 Toprol Xl - PO 100 mg DAILY@1900 ELIZA Administration Nifedipine 60 mg 12/02/18 22:00 12/03/18 13:49 Procardia Xl - PO 60 mg BID ELIZA Administration Pantoprazole Sodium 40 mg 12/03/18 10:00 12/03/18 13:49 Protonix - PO 40 mg DAILY [facility]IZA Administration Polyethylene Glycol 17 gm 12/02/18 22:00 12/03/18 14:09 Miralax (For Daily Use) - PO 17 grams BID ELIZA Administration Sucralfate 1 gm 12/02/18 22:00 12/03/18 13:48 Carafate Oral Suspension - PO 1 gm BID ELIZA Administration Impression 1. ESRD 2. abdominal pain 3. nausea and vomiting 4. HTN 5. anemia 6. hyperkalemia 7. esophagitis Plan - HD today - increase procardia - bpis not optimal - GI follow up - follow biopsy - monitor bp - monitor hg - will follow Dr Ramey
--- NOTE | 2018-12-03 16:10 | PN ---
Teaching Attending Note Name of Resident: Thee Gastelum ATTENDING PHYSICIAN STATEMENT I saw and evaluated the patient. I reviewed the resident's note and discussed the case with the resident. I agree with the resident's findings and plan as documented. SUBJECTIVE: Feels well. No further vomiting. No melena/hematochezia. Stool green in color. No further dyspepsia on eating. OBJECTIVE: Afebrile, Hemodynamically Stable Last Vital Signs Temp Pulse Resp BP Pulse Ox 98.3 F 80 18 175/82 H 93 L 12/03/18 12:40 12/03/18 12:40 12/03/18 12:40 12/03/18 12:40 12/03/18 09:00 HEENT - Atraumatic, Normocephalic. Heart - S1, S2, SM. Lungs - clear to auscultation. No crackles/wheeze Abdomen - Soft, non-tender. Bowel Sounds normal. Extremities - no edema, no calf tenderness Laboratory Results - last 24 hr 11/28/18 12/02/18 12/03/18 16:20 16:44 06:20 WBC RBC Hgb Hct MCV MCH MCHC RDW Plt Count MPV Sodium Potassium Chloride Carbon Dioxide Anion Gap BUN Creatinine Creat Clearance w eGFR POC Glucometer 106 93 Random Glucose Calcium Total Bilirubin AST ALT Alkaline Phosphatase Total Protein Albumin Hep A IgM Ab Confirm Negative Hepatitis A Ab Total Positive H Hep Bs Antigen Negative Hep Bs Antibody Reactive Hep B Core Total Ab Positive H 12/03/18 12/03/18 12/03/18 09:00 09:00 14:04 WBC 8.2 RBC 3.36 L Hgb 10.2 L Hct 30.5 L MCV 90.9 MCH 30.5 MCHC 33.6 RDW 16.3 H Plt Count 289 MPV 7.9 Sodium 132 L Potassium 4.0 Chloride 94 L Carbon Dioxide 27 Anion Gap 11 BUN 39 H Creatinine 11.1 H* Creat Clearance w eGFR 4.81 POC Glucometer 156 Random Glucose 131 H Calcium 7.9 L Total Bilirubin 0.3 AST 15 ALT 11 L Alkaline Phosphatase 76 Total Protein 6.2 L Albumin 2.9 L Hep A IgM Ab Confirm Hepatitis A Ab Total Hep Bs Antigen Hep Bs Antibody Hep B Core Total Ab Current Medications Generic Name Dose Route Start Last Admin Trade Name Freq PRN Reason Stop Dose Admin Hydralazine HCl 50 mg 12/02/18 22:00 12/03/18 13:48 Apresoline - PO 50 mg BID ELIZA Administration Sodium Chloride 250 mls @ 3,000 mls/hr 12/02/18 19:26 Normal Saline - IV 12/03/18 19:26 PRN PRN Hypotension during Dialysis Insulin Aspart 1 vial 11/30/18 07:00 12/03/18 14:07 Novolog Vial Sliding Scale - SQ 2 units TIDAC ELIZA Administration Protocol Metoprolol Succinate 100 mg 12/01/18 19:00 12/02/18 18:39 Toprol Xl - PO 100 mg DAILY@1900 ELIZA Administration Nifedipine 90 mg 12/03/18 15:25 Procardia Xl - PO BID ELIZA Pantoprazole Sodium 40 mg 12/03/18 10:00 12/03/18 13:49 Protonix - PO 40 mg DAILY ELIZA Administration Polyethylene Glycol 17 gm 12/02/18 22:00 12/03/18 14:09 Miralax (For Daily Use) - PO 17 grams BID ELIZA Administration Sucralfate 1 gm 12/02/18 22:00 12/03/18 13:48 Carafate Oral Suspension - PO 1 gm BID ELIZA Administration ASSESSMENT AND PLAN: 58 year old male with history of HTN, DM 2, ESRD on HD (MWF), admitted on with coffee ground emesis. 1. Acute GI bleed, resolved. s/p EGD - esophagitis and gastritis - pathology:ulcerated esophageal mucosa. Continue Protonix and Sucralfate. Patient clinically improving, no indication for Diflucan at this time. Tolerating Advanced diet with Maalox prn for dyspepsia. GI follow up on discharge. 2. ESRD on HD MWF - HD 12/03/17. Nephrology follow-up on discharge. 3. Chronic Anemia secondary to ESRD - Epo per Nephrology. 4. Hypertension - Metoprolol Succinate 100mg PO daily, Nifedipine increased to 90 mg PO bid, Hydralazine (dose also increased to 50mg bid). 5. Hyponatremia/ Hyperkalemia - Resolved. 6. DM 2 - resume home regimen. Medically stable for discharge on soft diet with progress to regular consistency as tolerated, with GI follow up on discharge.
--- NOTE | 2018-12-03 16:36 | DS ---
Physical Exam: SUBJECTIVE: Patient seen and examined at bedside. He is tolerating full liquid diet, and tolerated advancement to soft diet. Admits resolution of epigastric burning. Admits one loosely formed bowel movement overnight without melena, or hematochezia. Denies abdominal pain, nausea, vomiting. Denies fevers or chills. OBJECTIVE: Vital Signs Period Temp Pulse Resp BP Sys/[place] Pulse Ox Last 24 Hr 98.3 F-99.6 F 72-84 17-20 139-178/62-91 93-97 PHYSICAL EXAM GENERAL: Patient is awake, alert, and fully oriented, in no acute distress. HEAD: Normnocephalic, atraumatic. EYES: Pupils equal, round and reactive to light, extraocular movements intact, sclera anicteric, conjunctiva clear. EARS, NOSE, THROAT: Oropharynx clear without exudates, or erythema. Moist mucous membranes. NECK: Supple without lymphadenopathy. LUNGS: Breath sounds equal, clear to auscultation bilaterally. No wheezes, and no crackles. No accessory muscle use. HEART: Regular rate and rhythm, normal S1 and S2 without murmur, rub or gallop. ABDOMEN: Soft, nontender to light and deep palpation X4 quadrants. Normoactive bowel sounds X4 quadrants. No guarding, no rebound tenderness, No hepatomegaly or splenomegaly palpated or percussed. MUSCULOSKELETAL: Normal range of motion at all joints. No bony deformities or tenderness. Strength 5/5 b/l upper and lower extremities. UPPER EXTREMITIES: 2+ radial pulses b/l. Warm, well-perfused. Left upper extremity AV fistula with palpable thrill. LOWER EXTREMITIES: 2+ dorsalis pedis pulses b/l. Warm, well-perfused. No calf tenderness. No peripheral edema b/l lower extremities. NEUROLOGICAL: Cranial nerves II-XII intact. No gross focal deficits. PSYCHIATRIC: Cooperative. Good eye contact. Appropriate mood and affect. SKIN: Warm, dry. LABS Laboratory Results - last 24 hr 11/28/18 12/02/18 12/03/18 16:20 16:44 06:20 WBC RBC Hgb Hct MCV MCH MCHC RDW Plt Count MPV Sodium Potassium Chloride Carbon Dioxide Anion Gap BUN Creatinine Creat Clearance w eGFR POC Glucometer 106 93 Random Glucose Calcium Total Bilirubin AST ALT Alkaline Phosphatase Total Protein Albumin Hep A IgM Ab Confirm Negative Hepatitis A Ab Total Positive H Hep Bs Antigen Negative Hep Bs Antibody Reactive Hep B Core Total Ab Positive H 12/03/18 12/03/18 12/03/18 09:00 09:00 14:04 WBC 8.2 RBC 3.36 L Hgb 10.2 L Hct 30.5 L MCV 90.9 MCH 30.5 MCHC 33.6 RDW 16.3 H Plt Count 289 MPV 7.9 Sodium 132 L Potassium 4.0 Chloride 94 L Carbon Dioxide 27 Anion Gap 11 BUN 39 H Creatinine 11.1 H* Creat Clearance w eGFR 4.81 POC Glucometer 156 Random Glucose 131 H Calcium 7.9 L Total Bilirubin 0.3 AST 15 ALT 11 L Alkaline Phosphatase 76 Total Protein 6.2 L Albumin 2.9 L Hep A IgM Ab Confirm Hepatitis A Ab Total Hep Bs Antigen Hep Bs Antibody Hep B Core Total Ab HOSPITAL COURSE: Date of Admission:11/27/18 Date of Discharge: 12/03/18 Patient is a 58 year old male with history of hypertension, diabetes mellitus, ESRD on HD Fri/Fri/ Fri, presents with complaint of coffee ground emesis. Upon admission CT scan showed concentric thoracic esophageal wall thickening suggestive of esophagitis. Labs upon admission: Na 128, K 5.3, BUN 44, Cr 9.0. He was transferred to ICU. Given Insulin, D50, Calcium gluconate, Albuterol nebulizer treatments. Protonix drip initiated. Patient was placed NPO. Boerhaave syndrome ruled out with CT chest. Endoscopy showed esophagitis within mid, and lower third esophagus. Mild gastritis gastruc antrum. Pathology was negative for H. pylori. Rare fungal forms noted on PAS stain. No intestinal metaplasia noted. Patient had no episodes of emesis since hospital admission. Dialysis was continued via left upper extremity AV fistula. Patient transferred to medical- surgical floor. He was started on clear liquid diet, advanced to full liquid, and subsequently soft diet which he tolerated well without discomfort, dysphagia , abdominal pain, nausea, vomiting. Patient's constipation was managed with Miralax and Sucralfate. Patient endorsed soft bowel movements without melena or hematochezia. Discharged with Protonix, and Sucralfate, and to continue Nifedipine, Hydralazine, and Metoprolol. Patient discharged with instructions to maintain soft diet for the next two weeks, with adequate hydration. Follow up with primary care physician, manager data, and wrapper operator as outpatient. Minutes to complete discharge: 35 Discharge Summary Reason For Visit: COFFEE GROUND EMESIS,INCREASED SERUM LIPASE LEVEL Current Active Problems Constipation (Acute) Diabetes 1.5, managed as type 2 (Acute) Dialysis patient (Acute) Dysphagia (Acute) ESRD (end stage renal disease) (Acute) Elevated lipase (Acute) Esophagitis (Acute) Esophagus disorder (Acute) Esophagus perforation (Acute) GERD with esophagitis (Acute) Hematemesis with nausea (Acute) Hypertension (Acute) Condition: Stable - Instructions Diet, Activity, Other Instructions: You were admitted to hospital with complaint of dark colored vomit, associated with abdominal pain. You were evaluated by the manager data and had an endoscopy which showed gastritis. You are being discharged home. Continue with a soft diet for the next two week. Please see the attached information for details regarding the soft diet. Be sure to eat slowly, chew food well, and remain adequately hydrated by drinking plenty of water. Abstain from any alcohol or NSAID medications. Continue taking your home medications as directed. You will begin taking Protonix 40mg daily. Take Sucralfate 1 gram every 12 hours Follow up with your primary care physician within the next two to three days after discharge. Follow up with Dr. Hall to continue hemodialysis Friday/ Friday/ Friday. Follow up with the manager data (Dr. Cheng) within the next week after your discharge. Referrals: Meliton Cheng DO [Staff Physician] - 1 Week Jaden Hall MD [Staff Physician] - 12/04/18 Disposition: HOME - Home Medications Comprehensive Discharge Medication List: Ambulatory Orders Metoprolol Succinate [Toprol XL -] 100 mg PO DAILY@1900 #0 tab.sr.[id number] 03/01/16 Hydralazine HCl 50 mg PO BID 11/27/18 Nifedipine [Procardia Xl] 60 mg PO BID 11/27/18 Pantoprazole Sodium [Protonix -] 40 mg PO DAILY 30 Days #30 tablet.ec 12/03/18 Sucralfate Oral Suspension [Carafate Oral Suspension -] 1 gm PO BID 14 Days #1 bottle 12/03/18 This patient is new to me today: No Emergency Visit: Yes ED Registration Date: 11/27/18 Care time: The patient presented to the Emergency Department on the above date and was hospitalized for further evaluation of their emergent condition. Critical Care patient: No - Discharge Referral Referred to [facility] Med [facility] No Physician Referral: Landry Pickard MD ([facility]), Jimbo Cheng DO ( GI)
[2018-12-03 18:02] VITALS: BP 145/67; TEMP 98.9
[2018-12-03] MEDS ORDERED: NIFEdipine E.R. 90 MG TABLET (FP) PO SCH (22:00)
== END 2018-12-03 18:44 | disposition home or self-care (01) | DRG 377 ==
LOC: JER 10:19 → JERBED 19:25 → JICU 11-28 15:40 → J5S 12-01 17:24
PROVIDERS: ADMIT Internal Medicine
PROC: 5A1D70Z Performance of Urinary Filtration, Intermittent, Less than 6 Hours Per Day (ICD-10-PCS; 2018-11-28)
PROC: 5A1D70Z Performance of Urinary Filtration, Intermittent, Less than 6 Hours Per Day (ICD-10-PCS; 2018-11-30)
PROC: 0DB58ZX Excision of Esophagus, Via Natural or Artificial Opening Endoscopic, Diagnostic (ICD-10-PCS; principal; 2018-11-30 09:30)
PROC: 5A1D70Z Performance of Urinary Filtration, Intermittent, Less than 6 Hours Per Day (ICD-10-PCS; 2018-12-03)
DX: K92.2 Gastrointestinal hemorrhage, unspecified (principal); N18.6 End stage renal disease; I12.0 Hypertensive chronic kidney disease with stage 5 chronic kidney disease or end stage renal disease; E87.1 Hypo-osmolality and hyponatremia; K22.10 Ulcer of esophagus without bleeding; D63.1 Anemia in chronic kidney disease; E11.22 Type 2 diabetes mellitus with diabetic chronic kidney disease; Z99.2 Dependence on renal dialysis; K20.9 Esophagitis, unspecified; E87.5 Hyperkalemia; R10.13 Epigastric pain; K59.00 Constipation, unspecified; K21.0 Gastro-esophageal reflux disease with esophagitis; K29.70 Gastritis, unspecified, without bleeding; R13.10 Dysphagia, unspecified
CPT/HCPCS: 36415; 71046-TC-FY; 71260-TC; 74019-TC-FY; 74177-TC; 80048; 80053; 81003; 81015; 82272; 82565; 82962; 83036; 83690; 83735; 84100; 84484; 84520; 85025; 85027; 85610; 85730; 86140; 86704; 86706; 86708; 86803; 86850; 86900; 86901; 87040; 87086; 87340; 87804; 88305-TC; 90688; 90732; 93005; 93010; 99285-25; G0008; G0009; J0131; J0885; J7030